=== PATIENT | female | born 1970 ===

== ENCOUNTER 2020-08-12 14:28 | Emergency (ER) | payer OTHER, SELFPAY ==
[2020-08-12 14:54] VITALS: BP 135/72; PULSE 82; RESP 16; TEMP 36.6; O2SAT 99; BMI 38.4
--- NOTE | 2020-08-12 15:12 | ED.SKABFB ---
HPI - Skin/Abscess/Foreign Bdy General Chief complaint: Skin/Abscess/Foreign Body Stated complaint: RASH Time Seen by Provider: 08/12/20 15:12 History of Present Illness HPI narrative: Patient developed an itchy rash in left armpit and right lower leg which she scratched and then it got infected so she went to urgent care and urgent care started Bactrim, Atarax twice a day and mupirocin and the rash is not improved it is still very itchy and the surrounding redness has not improved so she comes here to be recheck she denies any fever or chills no joint pains Related Data Previous Rx's Medication Instructions Recorded sulfamethoxazole 800 1 tab PO BID 7 Days #14 tab 08/08/20 mg-trimethoprim 160 mg tablet cephalexin 500 mg PO QID 7 Days #28 tab 08/12/20 cetirizine 10 mg PO DAILY PRN #14 cap 08/12/20 prednisone 60 mg PO DAILY 3 Days #9 tab 08/12/20 naproxen 500 mg tablet,delayed 500 mg PO BID PRN #60 tab 08/18/20 release hydroxyzine HCl 25 mg tablet 25 mg PO TID PRN 15 Days #45 tab 08/20/20 mupirocin 2 % topical ointment 1 appl TOPICAL TID 10 Days #22 g 08/20/20 Allergies Allergy/AdvReac Type Severity Reaction Status Date / Time nickel [NICKEL] Allergy Severe RASH Verified 08/08/20 14:48 aspirin [ASPIRIN] Allergy Unknown RASH Verified 08/08/20 14:48 nickel Allergy Unknown hives/rash Uncoded 08/08/20 14:48 Seafood Allergy Unknown Unknown Uncoded 08/08/20 14:48 Vicodin Allergy Unknown hives/rash Uncoded 08/08/20 14:48 Review of Systems Review of Systems: Positive for rash on left armpit and right leg negatives are no fever no chills no dizziness no weakness no headache no neck pain no chest pain no shortness of breath no abdominal pain no nausea no vomiting no joint pains PMFSH Past Medical History Source: nursing notes reviewed Medical History (Updated 08/12/20 @ 15:28 by PATY Simental) Cellulitis of skin Pruritic erythematous rash Surgical History H/O tubal ligation Hx of cataract surgery (~2015) S/P lumbar and lumbosacral fusion by anterior technique (~04/2012) Status post ablation of incompetent vein using laser Family History Family History Mother Hx of thyroid cancer Father Dengue Social History Social History Alcohol intake: never Smoking Status: Current some day smoker Cigarettes Per Day: 2 Advance Directives: No Advance Directives Information Provided: Yes Physical Exam Vital Signs: Vital Signs: Last Vital Signs Temp 98 F 08/12/20 14:54 Pulse 82 08/12/20 14:54 Resp 16 08/12/20 14:54 BP 135/72 08/12/20 14:54 Pulse Ox 99 08/12/20 14:54 Body Mass Index 38.4 General appearance is no acute distress, and cooperative Head is normocephalic atraumatic Neck is supple Respiratory no distress Extremities is full range of motion x4 without any joint swelling The skin the left armpit had a red area that is mildly tender with no abscess no fluctuance no discharge, the skin was mildly warm The right lower leg had an area of redness tenderness and warmth again no swelling no discharge no abscess no fluctuance neurovascular distal and gait was normal and joints were normal Neuro no focal deficits Course Course Course Narrative: Keflex was added to antibiotic regimen in well-appearing patient with cellulitis Underlying itchy rash was treated but with addition of prednisone and Zyrtec Discharge Plan Discharge Clinical Impression: Pruritic rash Cellulitis Qualifiers: Site of cellulitis: extremity Patient Disposition: Home, Self-Care Additional Instructions: We are adding a 2nd antibiotic Keflex which covers some common skin infections that are not covered by Bactrim We are changing the rash treatment for the itchy rash Use your hydroxyzine 25 mg at night before bed You could take 2 of them, 50 mg before bed, this may make you sleepy but should help to control the itch We are adding cetirizine which is an all-day antihistamine for itch and prednisone which is a strong anti-inflammatory which may help itch after 24 hours Follow with primary doctor Return in 3 days for recheck if not improved Return to ER any time for spreading redness, worse pain and swelling, any worse condition or any concerns Prescriptions: New cephalexin 500 mg tablet 500 mg PO QID 7 Days Qty: 28 RF: 0 cetirizine 10 mg capsule 10 mg PO DAILY PRN (Reason: allergy symptoms) Qty: 14 RF: 0 prednisone 20 mg tablet 60 mg PO DAILY 3 Days Qty: 9 RF: 0 No Action naproxen 500 mg tablet,delayed release (DR/EC) 500 mg PO BID PRN (Reason: for pain) Qty: 60 RF: 1 mupirocin 2 % ointment 1 appl topical TID 10 Days Qty: 22 RF: 3 hydroxyzine HCl 25 mg tablet 25 mg PO TID PRN (Reason: itching) 15 Days Qty: 45 RF: 2 sulfamethoxazole-trimethoprim [Bactrim DS] 800-160 mg tablet 1 tab PO BID 7 Days Qty: 14 RF: 0 Interventions: ED Discharge Assessment Last Done: 08/12/20 15:42 Discharge Date/Time: 08/12/20 15:44
[2020-08-12] MEDS: cephALEXin 500 MG CAPSULE PO (15:39)
[2020-08-12] MEDS: predniSONE 20 MG TABLET 60 MG PO (15:39)
[2020-08-12] MEDS: Loratadine 10 MG TABLET PO (15:39)
== END 2020-08-12 15:44 | disposition home or self-care (01) ==
PROVIDERS: Emergency Provider Emergency Medicine; PCP Internal Medicine
DX: L29.9 Pruritus, unspecified (principal); L03.112 Cellulitis of left axilla; L03.115 Cellulitis of right lower limb; F17.200 Nicotine dependence, unspecified, uncomplicated
CPT/HCPCS: 99283

== ENCOUNTER 2021-05-30 21:56 | Emergency (ER) | payer OTHER, SELFPAY ==
--- NOTE | ~2021-05-30 | CT_ITS ---
EXAMINATION: CT ABDOMEN AND PELVIS WITHOUT CONTRAST CLINICAL INFORMATION: Left Flank pain COMPARISON: CT abdomen pelvis 06/11/2017. Renal ultrasound 06/30/2017 TECHNIQUE: Multidetector volumetric imaging was performed from the superior aspect of the liver through the pubic symphysis. Sagittal and coronal reformatted images were obtained on the technologist's workstation. This CT examination was performed using dose optimization techniques as appropriate, variously including the following: *Automated exposure control *Adjustment of mA and/or kV according to patient size (this includes techniques or standardized protocols for targeted exams where dose is matched to indication/reason for exam; i.e. extremities or head) *Use of iterative reconstruction technique DLP: 720 mGy-cm FINDINGS: LUNG BASES: The visualized lung bases are unremarkable. LIVER, GALLBLADDER, AND BILIARY TREE: The liver is normal in size, shape, and attenuation. No focal hepatic lesion or biliary ductal dilatation is present. The gallbladder is unremarkable with no evidence of radiopaque gallstones, gallbladder wall thickening, or obvious pericholecystic inflammatory changes. PANCREAS: Unremarkable. SPLEEN: Unremarkable. ADRENAL GLANDS: Unremarkable. KIDNEYS AND URETERS: The kidneys are normal in size, shape, and attenuation. No hydronephrosis, hydroureter, or calculi seen. No perinephric stranding. Exophytic lesion at the lower pole of left kidney measuring 1.4 cm AP, density measurement 26 Hounsfield units. This is stable since 06/11/2017. This was demonstrated to be a complex exophytic cyst at the left kidney on 06/30/2017 renal ultrasound. No further follow-up recommended. BLADDER: Unremarkable. GASTROINTESTINAL TRACT: No acute abnormality. There is no bowel wall thickening /edema. There is no bowel obstruction. There is a moderate volume of stool in the colon. The appendix is normal . The small bowel loops are unremarkable. The stomach is normal. There is no hiatal hernia. MESENTERY/RETROPERITONEUM: No inflammation. No free air or free fluid. No mass or significant lymphadenopathy. ABDOMINAL WALL: No significant hernia is appreciated. LYMPH NODES: Normal. VASCULAR: Unremarkable. PELVIC VISCERA: Unremarkable. OSSEOUS STRUCTURES: Status post fusion L4-S1 with transpedicular screws and vertical stabilization bar bilaterally. Disc spacer at L4-L5 and L5-S1. Surgical clips in the retroperitoneum related to the lumbar spine surgery. CT/CT abdomen pelvis wo con IMPRESSION: No acute abnormality CT scan abdomen pelvis. There is no hydronephrosis. There is no renal or ureteral calculus. Fleischner guidelines were followed.
[2021-05-30 22:20] VITALS: BP 148/68; BP 99/46; PULSE 75; RESP 16; TEMP 36.6; O2SAT 97; O2SAT 99; BMI 39.3
--- NOTE | 2021-05-30 22:32 | ED.ABDPAIN ---
HPI - Abdominal Pain General Chief Complaint: Abdominal Pain Stated Complaint: abd pain Time Seen by Provider: 05/30/21 22:32 Source: patient Mode of arrival: EMS Limitations: no limitations History of Present Illness HPI narrative: Patient history of kidney stone about 1 year ago complaining of left flank pain for last 3 days got worse tonight with some blood in the urine had nausea and vomiting earlier no fever/ chills Related Data Previous Rx's Medication Instructions Recorded sulfamethoxazole 800 1 tab PO BID 7 Days #14 tab 08/08/20 mg-trimethoprim 160 mg tablet (Bactrim DS) cephalexin 500 mg tablet 500 mg PO QID 7 Days #28 tab 08/12/20 cetirizine 10 mg capsule 10 mg PO DAILY PRN #14 cap 08/12/20 prednisone 20 mg tablet 60 mg PO DAILY 3 Days #9 tab 08/12/20 mupirocin 2 % topical ointment 1 appl TOPICAL TID 10 Days #22 g 08/20/20 hydroxyzine HCl 25 mg tablet 25 mg PO TID PRN #45 tab 08/29/20 naproxen 500 mg tablet,delayed 500 mg PO BID PRN #60 tab 10/14/20 release (EC-Naproxen) ciprofloxacin HCl 500 mg tablet 500 mg PO BID #14 tab 05/31/21 (Cipro) tramadol 50 mg tablet 50 mg PO Q6H PRN #20 tab 05/31/21 Allergies Allergy/AdvReac Type Severity Reaction Status Date / Time nickel [NICKEL] Allergy Severe RASH Verified 08/08/20 14:48 aspirin [ASPIRIN] Allergy Unknown RASH Verified 08/08/20 14:48 nickel Allergy Unknown hives/rash Uncoded 08/08/20 14:48 Seafood Allergy Unknown Unknown Uncoded 08/08/20 14:48 Vicodin Allergy Unknown hives/rash Uncoded 08/08/20 14:48 Review of Systems Review of Systems Yes all other systems are reviewed and are negative Physical Exam Vital Signs: Vital Signs: Last Vital Signs Temp 97.6 F 05/31/21 00:00 Pulse 63 05/31/21 00:00 Resp 15 05/31/21 00:34 BP 100/65 05/31/21 00:00 Pulse Ox 99 05/31/21 00:00 BMI result Body Mass Index 39.3 Appearance: Alert. Oriented X3. In moderate distress. Eyes: PERRLA, No Nystagmus ENT: Pharynx normal. Oral Mucosa moist Neck: Normal inspection. Neck supple. CVS: Normal heart rate and rhythm. Pulses normal. Respiratory: No respiratory distress. Equal air entry bilateral, no wheezing/rales/rhonchi Abdomen: Soft and nontender. Bowel sounds are present, no mass palpable, left CVA tenderness++ Skin: Skin warm and dry. Normal skin color. Normal skin turgor. Extremities: No lower extremity edema. No calf tenderness Neuro: Oriented X 3. MDM - Abdominal Pain MDM Narrative Medical decision making narrative: Patient's CT scan negative for any kidney stone has surgery in the back maybe that is causing the pain radiating to the front. Will check the UA 1 am UA positive for UTI will start on Levaquin discharge patient home Lab Data Attestation: I reviewed the patient's lab results. Result diagrams: 05/30/21 23:05 05/30/21 23:05 Labs: Lab Results 05/30/21 05/30/21 05/31/21 Range/Units 23:05 23:05 00:37 WBC 8.7 (4.8-10.8) X10*3/uL RBC 4.79 (4.20-5.50) X10*6/uL Hgb 12.7 (12.0-16.0) g/dl Hct 41.4 (37.0-47.0) % MCV 86.4 (80.0-98.0) fL MCH 26.5 L (27.0-33.0) pg MCHC 30.7 L (31.0-35.0) g/dl RDW 13.6 (11.0-16.0) % Plt Count 201 (160-400) X10*3/uL MPV 12.0 (9.4-12.3) fL Immature Gran % (Auto) 0.1 (0.0-0.4) % Neut % (Auto) 66.3 (45-73) % Lymph % (Auto) 21.8 (20-40) % [place] % (Auto) 7.0 (2-11) % Eos % (Auto) 4.5 H (0-4) % Baso % (Auto) 0.3 (0-2) % Lymph # (Auto) 1.9 (1.2-4.9) X10*3/uL [place] # (Auto) 0.6 (0.1-1.2) X10*3/uL Eos # (Auto) 0.4 (0.0-0.4) X10*3/uL Baso # (Auto) 0.0 (0.0-0.2) X10*3/uL Abs Immat Gran (auto) 0.01 (0.00-0.03) X10*3/uL Absolute Neuts (auto) 5.7 (2.0-8.3) x10*3/uL Absolute Nucleated RBC 0.000 (0.0-0.012) X10*3/uL Nucleated RBC % (auto) 0.0 (0.0-0.2) /100WBC Sodium 145 (135-145) mmol/L Potassium 4.3 (3.3-5.1) mmol/L Chloride 110 H (96-108) mmol/L Carbon Dioxide 28 (22-29) mmol/L Anion Gap 11 L (12-20) BUN 21 H (9-16) mg/dL Creatinine 1.35 (0.5-1.4) mg/dL Estim Creat Clear Calc 51.7 Estimated GFR 41 Random Glucose 105 (60-115) mg/dL Calcium 9.9 (8.4-10.2) mg/dL Urine Color YELLOW Urine Appearance HAZY Urine pH 6.5 (5.0-8.0) Ur Specific [place] 1.025 (1.005-1.025) Urine Protein 1+ H (NEG-TRACE) MG/DL Urine Glucose (UA) NEG (NEG) MG/DL Urine Ketones NEG (NEG) MG/DL Urine Blood 3+ H (NEG) Urine Nitrite NEG (NEG) Ur Leukocyte Esterase 2+ H (NEG) Urine RBC 15-29 H (0) /HPF Urine WBC 30-49 H (0-4) /HPF Ur Squamous Epith Cells 1+ /LPF Urine Bacteria 2+ /LPF Urine Mucus 1+ /LPF Discharge Plan Discharge Clinical Impression: Acute left flank pain Acute cystitis Qualifiers: Hematuria presence: with hematuria Qualified Code(s): N30.01 - Acute cystitis with hematuria Patient Disposition: Home, Self-Care Instructions: Urinary Tract Infection in Women (ED), Flank Pain (ED) Additional Instructions: Drink plenty of fluids Take antibiotic as prescribed Pain medicine as advised Report to PCP/ER if not better Prescriptions: New ciprofloxacin HCl [Cipro] 500 mg tablet 500 mg PO BID Qty: 14 RF: 0 tramadol 50 mg tablet 50 mg PO Q6H PRN (Reason: pain) Qty: 20 RF: 0 No Action mupirocin 2 % ointment 1 appl topical TID 10 Days Qty: 22 RF: 3 hydroxyzine HCl 25 mg tablet 25 mg PO TID PRN (Reason: for itch) Qty: 45 RF: 2 naproxen [EC-Naproxen] 500 mg tablet,delayed release (DR/EC) 500 mg PO BID PRN (Reason: for pain) Qty: 60 RF: 1 cephalexin 500 mg tablet 500 mg PO QID 7 Days Qty: 28 RF: 0 cetirizine 10 mg capsule 10 mg PO DAILY PRN (Reason: allergy symptoms) Qty: 14 RF: 0 prednisone 20 mg tablet 60 mg PO DAILY 3 Days Qty: 9 RF: 0 sulfamethoxazole-trimethoprim [Bactrim DS] 800-160 mg tablet 1 tab PO BID 7 Days Qty: 14 RF: 0 Interventions: ED Discharge Assessment Last Done: 05/31/21 01:06 [facility] Past Medical History Medical History Cellulitis of skin Pruritic erythematous rash Surgical History H/O tubal ligation Hx of cataract surgery (~2015) S/P lumbar and lumbosacral fusion by anterior technique (~04/2012) Status post ablation of incompetent vein using laser Family History Family History Mother Hx of thyroid cancer Father Dengue Social History Social History Alcohol intake: never Cigarettes Per Day: 2 Advance Directives: No Advance Directives Information Provided: No Patient : No
[2021-05-30 23:01] VITALS: BP 105/59; PULSE 78; RESP 18; TEMP 36.6; O2SAT 99
[2021-05-30 23:09] LABS: MANUAL DIFF FLAG NO
[2021-05-30 23:11] VITALS: RESP 15
[2021-05-30 23:11] LABS: Basophils Percent Auto 0.3 % (0-2); Eosinophils Absolute Auto 0.4 X10*3/uL (0.0-0.4); Eosinophils Percent Auto 4.5 % (0-4); Hematocrit 41.4 % (37.0-47.0); Hemoglobin 12.7 g/dl (12.0-16.0); Imm Gran Abs Auto 0.01 X10*3/uL (0.00-0.03); Imm Gran Pct Auto 0.1 % (0.0-0.4); Lymphocytes Absolute Auto 1.9 X10*3/uL (1.2-4.9); Lymphocytes Percent Auto 21.8 % (20-40); Mean Corpuscular HGB Conc 30.7 g/dl (31.0-35.0); Mean Corpuscular Hemoglobin 26.5 pg (27.0-33.0); Mean Corpuscular Volume 86.4 fL (80.0-98.0); Monocytes Absolute Auto 0.6 X10*3/uL (0.1-1.2); Neutrophils Absolute Auto 5.7 x10*3/uL (2.0-8.3); Neutrophils Percent Auto 66.3 % (45-73); Platelet Count 201 X10*3/uL (160-400); Red Blood Count 4.79 X10*6/uL (4.20-5.50); Red Cell Distribution Width 13.6 % (11.0-16.0); White Blood Count 8.7 X10*3/uL (4.8-10.8)
[2021-05-30] MEDS: 0.9 % Sodium Chloride 1,000 ML 999 ML IV (23:11)
[2021-05-30] MEDS: Morphine Sulfate 4 MG/ML CARTRIDGE IVPUSH (23:11)
[2021-05-30] MEDS: ondansetron HCL 4 MG/2 ML VIAL IVPUSH (23:12)
[2021-05-30 23:24] LABS: Anion Gap 11 (12-20); Blood Urea Nitrogen 21 mg/dL (9-16); Calcium 9.9 mg/dL (8.4-10.2); Carbon Dioxide 28 mmol/L (22-29); Chloride 110 mmol/L (96-108); Creatinine Clr Calc Pharmacy 51.7; Estimated Glomerular Filt Rate 41; Glucose Random 105 mg/dL (60-115); Potassium 4.3 mmol/L (3.3-5.1); Sodium 145 mmol/L (135-145)
[2021-05-31] VITALS: BP 100/65; PULSE 63; RESP 16; TEMP 36.4; O2SAT 99
[2021-05-31 00:34] VITALS: RESP 15
[2021-05-31] MEDS: Ketorolac Tromethamine 30 MG/ML VIAL IVPUSH (00:34)
[2021-05-31] MEDS: HYDROmorphone HCl 1 MG/ML SYRINGE IVPUSH (00:34)
[2021-05-31 00:50] LABS: Appearance Urine HAZY; Color Urine YELLOW; Glucose Urine UA NEG (NEG); Leukocyte Esterase Urine 2+ (NEG); Nitrite Urine NEG (NEG); PH 6.5 (5.0-8.0); Specific Gravity - Urine 1.025 (1.005-1.025); UACC Culture Trigger YES; Urine Blood 3+ (NEG); Urine Ketones NEG (NEG); Urine Protein 1+ MG/DL (NEG-TRACE)
[2021-05-31 00:57] LABS: Bacteria Urine 2+ /LPF; Mucus Urine 1+ /LPF; Squamous Epithelial Cell Urine 1+ /LPF; WBC Urine 30-49 /HPF (0-4)
[2021-05-31] MEDS: levoFLOXacin 500 MG TABLET PO (01:11)
== END 2021-05-31 01:27 | disposition home or self-care (01) ==
PROVIDERS: Emergency Provider Internal Medicine; PCP Internal Medicine
DX: N30.01 Acute cystitis with hematuria (principal); R10.9 Unspecified abdominal pain; Z87.442 Personal history of urinary calculi
CPT/HCPCS: 36415; 74176; 80048; 81001; 85025; 87086; 96361; 96374; 96375; 99284; J1170; J1885; J2270; J2405

== ENCOUNTER 2021-07-26 11:23 | Outpatient (REF) | payer OTHER, SELFPAY ==
--- NOTE | ~2021-07-26 | XR_ITS ---
EXAMINATION: XR FINGER, RIGHT CLINICAL INFORMATION: Pain in right fingers. COMPARISON: None. TECHNIQUE: 3 views of the right 3rd digit. FINDINGS: The bones and soft tissues are normal. No fracture. Alignment is anatomic. Joint spaces are maintained. XR/XR finger RT min 2V IMPRESSION: Normal finger radiographs. Especially, there is no abnormality involving the 3rd digit.
== END 2021-07-26 11:24 | disposition home or self-care (01) ==
LOC: HO.XRAY 11:23
PROVIDERS: PCP Nurse Practitioner Acute Care; Visit Provider Nurse Practitioner Acute Care
DX: M79.644 Pain in right finger(s) (principal)
CPT/HCPCS: 73140

== ENCOUNTER → 2021-11-05 10:53 | Outpatient (BNVA) | payer OTHER, SELFPAY | PROVIDERS: PCP Nurse Practitioner Acute Care; Visit Provider Dietitian, Registered | DX: E66.9 Obesity, unspecified (principal); R63.0 Anorexia; Z68.38 Body mass index [BMI] 38.0-38.9, adult; Z71.3 Dietary counseling and surveillance | CPT/HCPCS: 97802 ==

== ENCOUNTER → 2021-11-28 11:20 | Outpatient (BNVA) | payer OTHER, SELFPAY | PROVIDERS: PCP Nurse Practitioner Family; Visit Provider Dietitian, Registered | DX: E66.9 Obesity, unspecified (principal) | CPT/HCPCS: 97803 ==

== ENCOUNTER 2021-12-05 14:15 | Emergency (ER) | payer OTHER, SELFPAY ==
--- NOTE | ~2021-12-05 | XR_ITS ---
EXAMINATION: XR CHEST CLINICAL INFORMATION: Chest pain. COMPARISON: 01/09/2014 chest radiographs. TECHNIQUE: Frontal view of the chest was obtained. FINDINGS: No significant abnormality is noted involving the heart, lungs, mediastinum, bony thorax or soft tissues. XR/XR chest 1V IMPRESSION: No acute cardiopulmonary process.
--- NOTE | 2021-12-05 14:26 | ECG_ITS ---
Test Reason : DIZZINESS Blood Pressure : / mmHG Vent. Rate : 090 BPM Atrial Rate : 090 BPM P-R Int : 140 ms QRS Dur : 076 ms QT Int : 332 ms P-R-T Axes : -05 028 006 degrees QTc Int : 406 ms Normal sinus rhythm Normal ECG When compared with ECG of 06-OCT-2015 22:48, No significant change was found Referred By: Generic ED Physician Electronically Signed By:SILVESTRE MORELOS
[2021-12-05 14:40] VITALS: BP 127/79; PULSE 97; RESP 16; TEMP 37.4; O2SAT 98; BMI 38.4
[2021-12-05 15:16] LABS: MANUAL DIFF FLAG NO
[2021-12-05 15:17] LABS: Basophils Percent Auto 0.4 % (0-2); Eosinophils Absolute Auto 0.1 X10*3/uL (0.0-0.4); Eosinophils Percent Auto 2.7 % (0-4); Hematocrit 37.5 % (37.0-47.0); Hemoglobin 11.6 g/dl (12.0-16.0); Imm Gran Abs Auto 0.01 X10*3/uL (0.00-0.03); Imm Gran Pct Auto 0.2 % (0.0-0.4); Lymphocytes Absolute Auto 0.3 X10*3/uL (1.2-4.9); Mean Corpuscular HGB Conc 30.9 g/dl (31.0-35.0); Mean Corpuscular Hemoglobin 25.6 pg (27.0-33.0); Mean Corpuscular Volume 82.6 fL (80.0-98.0); Monocytes Absolute Auto 0.4 X10*3/uL (0.1-1.2); Monocytes Percent Auto 9.6 % (2-11); Neutrophils Absolute Auto 3.6 x10*3/uL (2.0-8.3); Neutrophils Percent Auto 81.1 % (45-73); Platelet Count 144 X10*3/uL (160-400); Red Blood Count 4.54 X10*6/uL (4.20-5.50); Red Cell Distribution Width 13.2 % (11.0-16.0); White Blood Count 4.5 X10*3/uL (4.8-10.8)
[2021-12-05 15:24] LABS: COVID-19 Test Positive (Negative)
[2021-12-05 15:36] LABS: Anion Gap 10 (12-20); Blood Urea Nitrogen 18 mg/dL (9-16); Calcium 9.2 mg/dL (8.4-10.2); Carbon Dioxide 24 mmol/L (22-29); Chloride 107 mmol/L (96-108); Creatinine Clr Calc Pharmacy 87.4; Estimated Glomerular Filt Rate > 60; Glucose Random 94 mg/dL (60-115); Potassium 4.3 mmol/L (3.3-5.1); Sodium 137 mmol/L (135-145)
[2021-12-05 15:43] LABS: Troponin-I High Sensitivity < 3.5 ng/L (<3.5-17.0)
--- NOTE | 2021-12-05 18:27 | ED_ITS ---
HPI - URI/Sore Throat General Chief Complaint: Upper Respiratory Symptoms Stated Complaint: headache chest pain Time Seen by Provider: 12/05/21 18:01 Source: patient Mode of arrival: ambulatory Limitations: no limitations History of Present Illness HPI Narrative: 51-year-old female presenting to the ER with complaints of subjective fevers, chills, fatigue, malaise, headaches, nasal congestion/rhinorrhea and dry cough with chest wall pain since this morning. Reports that she was around her family yesterday although no sick contacts that she is aware of. She has 1 COVID vaccine. She denies any measured fevers, dizziness, neck pain/stiffness, trouble swallowing or breathing, shortness of breath or dyspnea on exertion, orthopnea, palpitations, chest pain, sputum production, rashes, nausea/vomiting/diarrhea constipation, black or bloody stools, dysuria or or abnormal vaginal discharge or any other symptoms complaints or concerns at this time. MD elicited complaint: fever, cough, rhinorrhea and nasal congestion Onset (ago): day(s) (today) Consistency: constant and progressively worsening Severity: moderate Able to tolerate fluids by mouth: Yes Exacerbating factors: nothing Relieving factors: nothing Related Data Home Medications Medication Instructions Recorded Confirmed fluticasone propionate 50 1 spray intranasal BID 06/14/21 06/27/21 mcg/actuation nasal spray,suspension (Flonase Allergy Relief) Previous Rx's Medication Instructions Recorded cetirizine 10 mg capsule 10 mg PO DAILY PRN allergy 08/12/20 symptoms #14 caps hydroxyzine HCl 25 mg tablet 25 mg PO TID PRN for itch #45 tabs 05/31/21 ibuprofen 800 mg tablet 800 mg PO Q8H PRN pain #30 tabs 05/31/21 tramadol 50 mg tablet 50 mg PO Q6H PRN pain #20 tabs 05/31/21 albuterol sulfate 1.25 mg/3 mL 1.25 mg (3 mL) inhalation QID PRN 06/14/21 solution for nebulization shortness of breath or wheezing #75 mL albuterol sulfate 90 mcg/actuation 2 puff inhalation Q4-6H PRN 06/14/21 aerosol inhaler (ProAir HFA) shortness of breath or wheezing #8.5 grams diclofenac sodium 1 % topical gel 2 g topical QID PRN pain #100 grams 06/27/21 (Arthritis Pain (diclofenac)) mupirocin 2 % topical ointment 1 appl topical TID 10 days #22 06/27/21 grams tizanidine 2 mg tablet 2 mg PO BEDTIME PRN muscle 06/27/21 spasticity #10 tabs triamcinolone acetonide 0.1 % 1 appl topical DAILY 14 days #15 06/27/21 topical cream grams furosemide 20 mg tablet 10 mg PO Q OTHER DAY #7 tabs 07/26/21 incontinence pad, liner, disp #144 ea 11/26/21 ([employer] Large pads) vyftszmmiv-svllclqgoqunu-qflfhwyg 1 tab PO Q6H PRN headaches #14 tabs 12/05/21 50 mg-325 mg-40 mg tablet cefuroxime axetil 250 mg tablet 250 mg PO BID uti 7 days #14 tabs 12/05/21 Allergies Allergy/AdvReac Type Severity Reaction Status Date / Time nickel [NICKEL] Allergy Severe RASH Verified 12/05/21 14:40 aspirin [ASPIRIN] Allergy Unknown RASH Verified 12/05/21 14:40 nickel Allergy Unknown hives/rash Uncoded 07/26/21 10:41 Seafood Allergy Unknown Unknown Uncoded 07/26/21 10:41 Vicodin Allergy Unknown hives/rash Uncoded 07/26/21 10:41 Review of Systems Review of Systems: Constitutional : + subjective fevers /chills/fatigue/malaise, No Weight loss, No Night Sweats ENT/Mouth : Nasal congestion/rhinorrhea, +No Hearing loss, No Ear Pain, No Sinus Pain, No Hoarseness, No sore throat, No Swallowing Difficulty Eyes: No Eye Pain, No Swelling, No Redness, No Foreign Body, No Discharge, No Vision Changes Cardiovascular : No Chest Pain, No SOB, No Dyspnea on Exertion, No Orthopnea, No Edema, No Palpitations Respiratory : +Cough, No Sputum, No Wheezing, No Smoke Exposure, No Dyspnea Gastrointestinal : No Nausea, No Vomiting, No Diarrhea, No Constipation, No abdominal Pain, No Hematochezia, No Melena Genitourinary : no irregular bleeding, No Dysuria, No Urinary Frequency, No Hematuria, No Urinary Incontinence, No Urgency, No Flank Pain, No Urinary Flow Changes, No Hesitancy Musculoskeletal : No joint pain, + Myalgias, No Joint Swelling Skin : No Skin Lesions, No rash Neuro : No Weakness, No Numbness, No Paresthesias, No Loss of Consciousness, No Dizziness, + Headache Psych : No Anxiety/Panic, No Depression, No SI/HI/AH/VH, No Social Issues, Heme/Lymph: No Bruising, No Bleeding,No Lymphadenopathy Endocrine : No Polyuria, No Polydipsia, No Temperature Intolerance Yes all other systems are reviewed and are negative [facility] Past Medical History Attestation statement: The following information was validated with the patient. Source: old records reviewed and nursing notes reviewed Medical History Cellulitis of skin Pruritic erythematous rash Surgical History H/O tubal ligation Hx of cataract surgery (~2015) S/P lumbar and lumbosacral fusion by anterior technique (~04/2012) Status post ablation of incompetent vein using laser Family History Family History Mother Hx of thyroid cancer Father Dengue Social History Social History Housing: Apartment Alcohol intake: never Patient Tobacco Use Status: Current everyday Tobacco user Cigarettes Per Day: 2 e-Cigarette/Vaping Use: Never Used Second Hand Smoke Exposure: Yes Advance Directives: No Advance Directives Information Provided: No service: No Current occupational status: disabled Physical Exam Vital Signs: Vital Signs: Last Vital Signs Temp 99.4 F 12/05/21 14:40 Pulse 97 12/05/21 14:40 Resp 16 12/05/21 14:40 BP 127/79 12/05/21 14:40 Pulse Ox 98 12/05/21 14:40 O2 Del Method 12/05/21 14:40 BMI result Body Mass Index 38.4 vital signs have been reviewed as normal and appeared to be correct. Blood pressure normal. Heart rate normal. Respiration rate normal. Temperature normal. Oxygen saturation normal. Appearance: Alert. Oriented X3. No acute distress. Head: Normal external exam. Normocephalic. Atraumatic. Eyes: PERRLA. EOMI. Conjunctiva and sclera normal. Eyelids normal. ENT: EAC normal. TM's Normal. Pharynx normal. Uvula midline. Moist mucous membranes. No lesions/ulcerations or masses noted on the tongue. Normal voice. No trismus noted. No drooling noted. No muffled voice noted. Neck: Normal inspection. Neck supple. FROM. No adenopathy. Thyroid Normal. No meningeal signs. No neck mass noted. No signs of trauma noted. CVS: Normal heart rate and rhythm. Heart sound normal. Pulses normal throughout. No murmurs/rales/gallops. Respiratory: No respiratory distress. Painless inspiration. Breath sounds normal. No wheezes/rales/rhonchi noted. No crepitus is noted. No signs of trauma noted. No accessory muscle usage noted or decreased air movement noted. Abdomen: Soft and nontender. Bowel sounds normal in all 4 quadrants. No distention noted. No organomegaly noted. No visible injury noted. Back: No CVA tenderness. Full range of motion noted. Nontender. No signs of trauma. Patient neuro intact bilaterally and distally on all 4 extremities. Patient's reflexes intact bilaterally and distally on all 4 extremities. No rashes/lesion/induration/fluctuance or signs of infection noted. Skin: Skin warm and dry. Normal skin color. Normal skin turgor. No rashes/lesions/lacerations noted. Extremities: No lower extremity edema. No calf tenderness is noted. Extremities exhibit normal range of motion and nontender. Neuro: Oriented X 3. No motor deficit. No sensory deficit. Reflexes normal. Normal steady gait. No focal neuro deficits noted. CN's II-XII intact bilaterally? Vascular: + radial pulses/+ 2 distal pedal pulses/+2 dorsalis pedis b/l. Normal cap refill. No cyanosis noted to upper extremity nails and lower extremity toes nails. Course Course Course Narrative: 51-year-old female presenting to the ER with complaints of subjective fevers, chills, fatigue, malaise, headaches, nasal congestion/rhinorrhea and dry cough with chest wall pain since this morning. Reports that she was around her family yesterday although no sick contacts that she is aware of. She has 1 COVID vaccine. Patient had labs drawn in waiting room and patient's white blood cell count is 4000. Hemoglobin is 11. Platelet count 144. Anion gap 10. BUN 18. Otherwise all other labs are within normal limits. UA positive for UTI. Patient positiv e for COVID. Chest x-ray is negative. Therefore at this time will DC home with instructions to self isolate per CDC guidelines for COVID. Antibiotics for her UTI and instructions return if any new or worsening symptoms. Patient understands agrees with this plan. MDM - URI/Sore Throat Medical Records Attestation: I reviewed the patient's medical records. Lab Data Attestation: I reviewed the patient's lab results. Result diagrams: 12/05/21 15:10 12/05/21 15:10 Labs: Lab Results 12/05/21 12/05/21 12/05/21 Range/Units 15:10 15:10 15:10 WBC 4.5 L (4.8-10.8) X10*3/uL RBC 4.54 (4.20-5.50) X10*6/uL Hgb 11.6 L (12.0-16.0) g/dl Hct 37.5 (37.0-47.0) % MCV 82.6 (80.0-98.0) fL MCH 25.6 L (27.0-33.0) pg MCHC 30.9 L (31.0-35.0) g/dl RDW 13.2 (11.0-16.0) % Plt Count 144 L D (160-400) X10*3/uL MPV 12.0 (9.4-12.3) fL Immature Gran % (Auto) 0.2 (0.0-0.4) % Neut % (Auto) 81.1 H (45-73) % Lymph % (Auto) 6.0 L (20-40) % Mcminn % (Auto) 9.6 (2-11) % Eos % (Auto) 2.7 (0-4) % Baso % (Auto) 0.4 (0-2) % Lymph # (Auto) 0.3 L (1.2-4.9) X10*3/uL Mcminn # (Auto) 0.4 (0.1-1.2) X10*3/uL Eos # (Auto) 0.1 (0.0-0.4) X10*3/uL Baso # (Auto) 0.0 (0.0-0.2) X10*3/uL Abs Immat Gran (auto) 0.01 (0.00-0.03) X10*3/uL Absolute Neuts (auto) 3.6 (2.0-8.3) x10*3/uL Absolute Nucleated RBC 0.000 (0.0-0.012) X10*3/uL Nucleated RBC % (auto) 0.0 (0.0-0.2) /100WBC Sodium 137 (135-145) mmol/L Potassium 4.3 (3.3-5.1) mmol/L Chloride 107 (96-108) mmol/L Carbon Dioxide 24 (22-29) mmol/L Anion Gap 10 L (12-20) BUN 18 H (9-16) mg/dL Creatinine 0.81 (0.5-1.4) mg/dL Estim Creat Clear Calc 87.4 Estimated GFR > 60 Random Glucose 94 (60-115) mg/dL Calcium 9.2 D (8.4-10.2) mg/dL Troponin I High Sens < 3.5 (<3.5-17.0) ng/L COVID-19 ([facility]) (Negative) COVID-19 Clin Com 12/05/21 Range/Units 15:10 WBC (4.8-10.8) X10*3/uL RBC (4.20-5.50) X10*6/uL Hgb (12.0-16.0) g/dl Hct (37.0-47.0) % MCV (80.0-98.0) fL MCH (27.0-33.0) pg MCHC (31.0-35.0) g/dl RDW (11.0-16.0) % Plt Count (160-400) X10*3/uL MPV (9.4-12.3) fL Immature Gran % (Auto) (0.0-0.4) % Neut % (Auto) (45-73) % Lymph % (Auto) (20-40) % Mcminn % (Auto) (2-11) % Eos % (Auto) (0-4) % Baso % (Auto) (0-2) % Lymph # (Auto) (1.2-4.9) X10*3/uL Mcminn # (Auto) (0.1-1.2) X10*3/uL Eos # (Auto) (0.0-0.4) X10*3/uL Baso # (Auto) (0.0-0.2) X10*3/uL Abs Immat Gran (auto) (0.00-0.03) X10*3/uL Absolute Neuts (auto) (2.0-8.3) x10*3/uL Absolute Nucleated RBC (0.0-0.012) X10*3/uL Nucleated RBC % (auto) (0.0-0.2) /100WBC Sodium (135-145) mmol/L Potassium (3.3-5.1) mmol/L Chloride (96-108) mmol/L Carbon Dioxide (22-29) mmol/L Anion Gap (12-20) BUN (9-16) mg/dL Creatinine (0.5-1.4) mg/dL Estim Creat Clear Calc Estimated GFR Random Glucose (60-115) mg/dL Calcium (8.4-10.2) mg/dL Troponin I High Sens (<3.5-17.0) ng/L COVID-19 ([facility]) Positive A (Negative) COVID-19 Clin Com See Note Imaging Data Chest x-ray: Attestation: I personally reviewed and interpreted this imaging study as follows: Radiologist's impression: FINDINGS: No significant abnormality is noted involving the heart, lungs, mediastinum, bony thorax or soft tissues. XR/XR chest 1V IMPRESSION: No acute cardiopulmonary process. Discharge Plan Discharge Clinical Impression: COVID-19, UTI (urinary tract infection) Patient Disposition: Home, Self-Care Instructions: Urinary Tract Infection in Women (ED), COVID-19 (Coronavirus Disease 2019) (ED) Prescriptions: New estbaxuyaw-mioihgerdhqkk-ycpa 50-325-40 mg tablet 1 tab PO Q6H PRN (Reason: headaches) Qty: 14 0RF cefuroxime axetil 250 mg tablet 250 mg PO BID 7 Days Qty: 14 0RF No Action (DME) [employer] Large Pad See Rx Instructions .Route Qty: 144 1RF Rx Instructions: As directed, change pad tid prn cetirizine 10 mg capsule 10 mg PO DAILY PRN (Reason: allergy symptoms) Qty: 14 0RF tramadol 50 mg tablet 50 mg PO Q6H PRN (Reason: pain) Qty: 20 0RF ibuprofen 800 mg tablet 800 mg PO Q8H PRN (Reason: pain) Qty: 30 0RF hydroxyzine HCl 25 mg tablet 25 mg PO TID PRN (Reason: for itch) Qty: 45 2RF mupirocin 2 % ointment 1 appl topical TID 10 Days Qty: 22 3RF triamcinolone acetonide 0.1 % cream 1 appl topical DAILY 14 Days Qty: 15 0RF tizanidine 2 mg tablet 2 mg PO BEDTIME PRN (Reason: muscle spasticity) Qty: 10 0RF diclofenac sodium [Arthritis Pain (diclofenac)] 1 % gel 2 g topical QID PRN (Reason: pain) Qty: 100 0RF Rx Instructions: apply to single elbow, wrist or hand; for hand includes palm/fingers/back of hand fluticasone propionate [Flonase Allergy Relief] 50 mcg/actuation spray,suspension 1 spray intranasal BID Rx Instructions: administer into each nostril albuterol sulfate [ProAir HFA] 90 mcg/actuation HFA aerosol inhaler 2 puff inhalation Q4-6H PRN (Reason: shortness of breath or wheezing) Qty: 8.5 0RF albuterol sulfate 1.25 mg/3 mL solution for nebulization 1.25 mg inhalation QID PRN (Reason: shortness of breath or wheezing) Qty: 75 0RF furosemide 20 mg tablet 10 mg PO Q OTHER DAY Qty: 7 0RF Referrals: Shyla Cifuentes FNP [Primary Care Provider] - 1 week Stand Alone Forms: Work/School Release
[2021-12-05] MEDS: Butalb/Acetamin/Caff 50/325/40 TABLET 2 TAB PO (18:53)
== END 2021-12-05 19:08 | disposition home or self-care (01) ==
PROVIDERS: Emergency Provider Internal Medicine; PCP Nurse Practitioner Family
DX: U07.1 COVID-19 (principal); N39.0 Urinary tract infection, site not specified; R50.9 Fever, unspecified; M79.10 Myalgia, unspecified site; R51.9 Headache, unspecified; R05.9 Cough, unspecified; F17.210 Nicotine dependence, cigarettes, uncomplicated; Z71.6 Tobacco abuse counseling; Z79.899 Other long term (current) drug therapy
CPT/HCPCS: 36415; 71045; 80048; 84484; 85025; 87635; 93005; 99283

== ENCOUNTER 2023-07-03 08:31 | Outpatient (REF) | payer OTHER, SELFPAY | END 2023-07-03 08:32 | disposition home or self-care (01) | LOC: HO.MAMMO 08:31 | PROVIDERS: PCP Physician Assistant; Visit Provider Physician Assistant | DX: Z12.31 Encounter for screening mammogram for malignant neoplasm of breast (principal) | CPT/HCPCS: 77063; 77067 ==

== ENCOUNTER → 2023-07-03 08:45 | Outpatient (BNV) | payer OTHER, SELFPAY | PROVIDERS: PCP Physician Assistant; Visit Provider Radiology Diagnostic Radiology | DX: Z12.31 Encounter for screening mammogram for malignant neoplasm of breast (principal) | CPT/HCPCS: 77063; 77067 ==

== ENCOUNTER 2023-07-20 11:06 | Outpatient (AMB) | payer OTHER, SELFPAY ==
--- NOTE | 2023-07-20 11:09 | MHC.PC.OV ---
Vital Signs 07/20/23 11:11 Height 5 ft 2 in Weight 212 lb 1.355 oz BMI 38.8 BP 124/64 Blood Pressure Location Lt brachial Position Sitting Pulse 70 Pulse Source Pulse Oximeter Pulse Oximetry (%) 97 Oxygen Delivery Method Room Air Intake Visit Reasons: f/u asthma, lumbar spine Intake Note: Patient is here to follow up on Asthma, Lumbar spine pain. 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 Required: No Sign Language Instructor: Not Required per policy Accompanied by: Self / Same As Patient Allergies nickel [NICKEL] Allergy (Severe, Verified 07/20/23 11:19) RASH aspirin [ASPIRIN] Allergy (Unknown, Verified 07/20/23 11:19) RASH niacin [From Nicotinex] Adverse Reaction (Intermediate, Verified 07/20/23 11:19) Rash nicotine [From Nicoderm CQ] Adverse Reaction (Intermediate, Verified 07/20/23 11:19) Dizziness nickel Allergy (Unknown, Uncoded 07/20/23 11:11) hives/rash Seafood Allergy (Unknown, Uncoded 07/20/23 11:11) Unknown Vicodin Allergy (Unknown, Uncoded 07/20/23 11:11) hives/rash Medication List - Last Reconciled 07/20/23 by Flaco Rosales PA-C albuterol sulfate 1.25 mg (3 mL) inhalation QID 30 days albuterol sulfate 90 mcg/actuation 2 puffs inhalation Q4-6H PRN 30 days cetirizine 10 mg PO DAILY PRN 90 days diclofenac sodium 1% (Arthritis Pain (diclofenac)) 2 grams topical QID PRN fluticasone propionate 50 mcg/actuation (Flonase Allergy Relief) 1 spray intranasal BID 30 days ibuprofen 800 mg PO Q8H PRN 30 days lidocaine 5% 1 patch topical DAILY 30 days mupirocin 2% 1 appl topical TID 10 days tramadol 50 mg PO Q6H PRN 7 days triamcinolone acetonide 0.1% 1 appl topical DAILY 30 days Tobacco use date assessed: 07/20/23 Dental Screening Dental Screen Date: 07/20/23 Did you have a dental visit in the last 12 months?: No Did you have a dental problem in the last 6 months where you did not have access to dental care?: No Was dental information given to patient?: Patient has dentist HPI f/u asthma, lumbar spine HPI Details Patient is a 53-year-old female here today for a routine annual physical.? Patient has a past medical history significant for chronic lumbar spine pain, obesity, asthma, allergic rhinitis. .. Failed back syndrome:? Patient did lumbar spine surgery with Dr. Robbins years ago.? Continues to have lumbar spine pain with radicular symptoms down left lower extremity.? She continues with the need of NSAIDs and p.r.n. tramadol for her pain.? She has not interested in any further pain reduction modalities at this time. . Asthma: She reports asthma has been fairly well controlled.? Does use her albuterol inhaler on a p.r.n. basis due to having episodes of wheezing.? Unfortunately continues to smoke and does not understand she does need to quit smoking.? She is tried nicotine replacement though had palpitations and dizziness. . Obese: She does understand her BMI is over 30 will work on being more physically active and adapting to better eating habits to reduce her weight/ PFSH Medical History (Updated 07/20/23 @ 12:58 by Flaco Rosales PA-C) COVID-19 Cellulitis of skin Pruritic erythematous rash Surgical History Hx of cataract surgery (~2015) Status post ablation of incompetent vein using laser H/O tubal ligation S/P lumbar and lumbosacral fusion by anterior technique (~04/2012) Family History Mother Hx of thyroid cancer Father Dengue Social History Housing: Apartment Alcohol intake: never Patient Tobacco Use Status: Current everyday Tobacco user Tobacco use type: Cigarette Cigarettes Per Day: 2 e-Cigarette/Vaping Use: Never Used Second Hand Smoke Exposure: Yes service: No Current occupational status: disabled Cognitive needs: No Hearing needs: No Vision needs: No Questionnaire PHQ-9 Over the last 2 weeks, how often have you been bothered by any of the following problems? 1. Little interest or pleasure in doing things: not at all 2. Feeling down, depressed, or hopeless: not at all 3. Trouble falling or staying asleep, or sleeping too much: not at all 4. Feeling tired or having little energy: not at all 5. Poor appetite or overeating: not at all 6. Feeling bad about yourself - or that you are a failure or have let yourself or your family down: not at all 7. Trouble concentrating on things, such as reading the newspaper or watching television: not at all 8. Moving or speaking so slowly that other people could have noticed. Or the opposite - being so fidgety or restless that you have been moving around a lot more than usual: not at all 9. Thoughts that you would be better off or of hurting yourself in some way: not at all Total score: 0 Depression Screening Interpretation: Negative Depression Screening Done: Yes 10487 - PHQ-9 Billing: Yes Source: Developed by Drs. Parish Paz, Deborah Friend, Zia Sharp and colleagues, with an educational sharon from [employer]. Thrive Questionnaire Date Thrive assessed: 07/20/23 I am a: Patient What is your living situation today?: I have a steady place to live Within the past 12 months, did the food you bought not last and you didn't have the money to get more?: Never true Within the past 12 months, did you worry whether your food would run out before you got money to buy more?: Never true Do you have trouble paying for medicines?: No Do you have trouble getting transportation to medical appointments?: No Do you have trouble paying your heating and electricity bill?: No Do you have trouble taking care of your child, family member or friend?: No Do you have trouble with day-to-day activities such as bathing, preparing meals, shopping, managing finances, etc.?: No Are you currently unemployed and looking for a job?: No Are you interested in more education?: No Currently or been in a relationship where the following occur: no concerns reported THRIVE Score: 0 AUDIT C Alcohol Use Questionnaire (AUDIT-C) 1. How often do you have a drink containing alcohol?: Never Total Score: 0 CAROLINE-7 AMB Questionnaire CAROLINE-7 Date CAROLINE - 7 assessed: 07/20/23 Feeling nervous, anxious, or on edge: 0 = Not at all Not being able to stop or control worryin = Not at all Worrying too much about different things: 0 = Not at all Trouble relaxin = Not at all Being so restless that it is hard to sit still: 0 = Not at all Becoming easily annoyed or irritable: 0 = Not at all Feeling afraid as if something awful might happen: 0 = Not at all Total CAROLINE-7 score (0-4 normal; 5-9 mild; 10-14 moderate; 15-21 severe): 0 Source: Developed by Drs. Parish Paz, Deborah Friend, Zia Sharp and colleagues, with an educational sharon from [employer]. CAROLINE-7 Assessment Billing CAROLINE-7 Assessment Tool: CAROLINE-7 Assessment 47493 ACT Questionnaire In the past 4 weeks, how much of the time did your asthma keep you from getting as much done at work, school or at home?: None of the time During the past 4 weeks, how often have you had shortness of breath?: Not at all During the past 4 weeks, how often did your asthma symptoms wake you up at night or earlier than usual in the morning?: Not at all During the past 4 weeks, how often have you had to use your rescue inhaler or nebulizer medication?: Not at all How would you rate your asthma control during the past 4 weeks?: Completely controlled ACT Interpretation: Negative Score: 25 Review of Systems Const Denies headache(s) Eyes Denies loss of vision ENT Denies vertigo, Denies dizziness, Denies headache(s) and Denies sore throat Card Denies chest pain, Denies leg edema and Denies lightheadedness Resp Denies cough, Denies hemoptysis and Denies wheezing GI Denies abdominal pain, Denies melena, Denies constipation, Denies diarrhea and Denies vomiting Denies urinary frequency, Denies dysuria and Denies urinary urgency Musc Denies arthralgias, Denies joint swelling, Denies numbness and Denies tingling Neuro Denies Abnormal speech present, Denies behavioral changes, Denies vertigo, Denies dizziness, Denies headache(s), Denies loss of vision, Denies memory loss, Denies numbness and Denies tingling Psych Denies anxiety, Denies behavioral changes, Denies depression, Denies memory loss and Denies panic attacks Sam/Lymph Denies easy bleeding and Denies easy bruising Aller/Immun Denies wheezing Physical exam (Primary Care) Vital Signs: Last Vital Signs Pulse 70 07/20/23 11:11 BP 124/64 07/20/23 11:11 Pulse Ox 97 07/20/23 11:11 Oxygen Delivery Method Room Air 07/20/23 11:11 BMI result Body Mass Index 38.8 Tobacco/Smoking Status: Tobacco use Status Tobacco use date assessed 07/20/23 07/20/23 11:18 Patient Tobacco Use Status Current everyday Tobacco 07/20/23 11:18 Tobacco use type Cigarette 07/20/23 11:18 e-Cigarette/Vaping Use Never Used 07/20/23 11:18 PHQ-9: PHQ-9 Score PHQ-9: Total score 0 07/20/23 12:57 Depression Screening Interpretation: Negative Thrive Assessment: Date of Thrive Assessment Date Thrive assessed 07/20/23 07/20/23 11:18 Currently or been in a relationship where the following occur: no concerns reported Const General: healthy appearing, no acute distress, alert and awake Nutritional Appearance: well nourished Orientation/consciousness: oriented to person, oriented to place and oriented to time HENMT Ears: TM's normal bilaterally General nose exam: Normal nasal mucous membranes and turbinates present Eyes Conjunctivae: conjunctivae normal Sclerae: sclerae normal Pupils: Equal, round and reactive pupils present Neck Neck: Yes no lymphadenopathy and Yes no JVD Thyroid: Thyroid normal Carotids: no bruits Resp Effort & Inspection: normal respiratory effort and not tachypneic Auscultation: no crackles, no rales, no rhonchi and no wheezes Cardio Rate: regular rate Rhythm: regular rhythm Heart sounds: no murmurs and normal S1 and S2 GI Palpation (GI): Soft to palpation, nontender, no hepatomegaly and no splenomegaly Auscultation: normal bowel sounds Skin General skin exam: no rashes or lesions noted and dry skin Neuro General: oriented to person, oriented to place and oriented to time Cranial nerves: Yes Equal, round and reactive pupils present Speech: No Abnormal speech present Gait exam (Neuro): Normal gait present Motor exam (neuro): no tremor noted Extrem Right upper extremity: full ROM Left upper extremity: full ROM Right lower extremity: full ROM; no edema Left lower extremity: full ROM; no edema Psych Mental Status: mental status grossly normal Speech and movement: Normal speech and movement present Affect: normal affect Attitude: cooperative Thought process: Normal thought process present Assessment and Plan Assessment & Plan (1) Asthma: Code(s): J45.909 - Unspecified asthma, uncomplicated Qualifiers: Asthma complication type: uncomplicated Asthma persistence: persistent Asthma severity: mild Qualified Code(s): J45.30 - Mild persistent asthma, uncomplicated Plan: Patient reports her asthma has been fairly well controlled. Does have some exacerbations during spring and fall. Otherwise denies any nighttime awakenings with asthma symptoms or recent exacerbations. (2) Tobacco dependence: Code(s): F17.200 - Nicotine dependence, unspecified, uncomplicated Plan: She does report smoking on occasion. He does not want any nicotine patches or gum. (3) Failed back syndrome: Code(s): M96.1 - Postlaminectomy syndrome, not elsewhere classified Plan: Has history of lumbar spine fusion surgery. Has had chronic pain in her lower lumbar spine. Does use NSAID and tramadol on a p.r.n. basis for her pain. (4) Obese: Code(s): E66.9 - Obesity, unspecified Qualifiers: Body mass index: BMI 38.0-38.9 Obesity classification: adult class 2 (BMI 35 - 39.9) Obesity type: due to excess calories Serious obesity comorbidity presence: without serious comorbidity Qualified Code(s): E66.09 - Other obesity due to excess calories; Z68.38 - Body mass index [BMI] 38.0-38.9, adult Plan: Patient does understand her BMI is over 30 will try to work on being more physically active and adapt to better eating habits to reduce her weight. (5) Borderline high cholesterol: Code(s): E78.9 - Disorder of lipoprotein metabolism, unspecified Plan: Patient has a history of borderline high cholesterol. Will recheck fasting lipids. Orders: Orders Complete Blood Count no Diff Today J45.30 - Mild persistent asthma, uncomplicated Comprehensive [place]. Panel Fast Today Z13.1 - Encounter for screening for diabetes mellitus Lipid Panel Today E78.9 - Disorder of lipoprotein metabolism, unspecified Medications: Refilled albuterol sulfate 90 mcg/actuation 2 puffs inhalation Q4-6H PRN 8.5 grams 3RF shortness of breath or wheezing 30 days J45.909 - Unspecified asthma, uncomplicated albuterol sulfate 1.25 mg (3 mL) inhalation QID 90 mL 3RF shortness of breath or wheezing 30 days J45.909 - Unspecified asthma, uncomplicated fluticasone propionate 50 mcg/actuation (Flonase Allergy Relief) administer into each nostril 1 spray intranasal BID 16 grams 6RF 30 days J45.30 - Mild persistent asthma, uncomplicated triamcinolone acetonide 0.1% 1 appl topical DAILY 30 grams 3RF 30 days L28.2 - Other prurigo mupirocin 2% 1 appl topical TID 22 grams 3RF 10 days L03.90 - Cellulitis, unspecified Coding Level of Care Code Est Pt Level 4 (80101) Diagnoses Mild persistent asthma without complication J45.30 Asthma complication type: uncomplicated Asthma persistence: persistent Asthma severity: mild Tobacco dependence F17.200 Failed back syndrome M96.1 Class 2 obesity due to excess calories without serious comorbidity with body mass index (BMI) of 38.0 to 38.9 in adult E66.09; Z68.38 Body mass index: BMI 38.0-38.9 Obesity classification: adult class 2 (BMI 35 - 39.9) Obesity type: due to excess calories Serious obesity comorbidity presence: without serious comorbidity Borderline high cholesterol E78.9 Additional Codes CAROLINE-7 Assessment Billing - CAROLINE-7 Assessment Tool: CAROLINE-7 Assessment [id number] ([id number])
[2023-07-20 11:11] VITALS: BP 124/64; PULSE 70; O2SAT 97; BMI 38.8
== END 2023-07-20 11:32 | disposition home or self-care (01) ==
PROVIDERS: PCP Physician Assistant; Visit Provider Physician Assistant
DX: J45.30 Mild persistent asthma, uncomplicated (principal); E66.09 Other obesity due to excess calories; Z68.38 Body mass index [BMI] 38.0-38.9, adult; F17.200 Nicotine dependence, unspecified, uncomplicated; M96.1 Postlaminectomy syndrome, not elsewhere classified; E78.9 Disorder of lipoprotein metabolism, unspecified
CPT/HCPCS: 99214

== ENCOUNTER 2023-09-04 07:26 | Outpatient (REF) | payer OTHER, SELFPAY ==
[2023-09-04 07:43] LABS: Hematocrit 41.4 % (37.0-47.0); Mean Corpuscular HGB Conc 31.4 g/dl (31.0-35.0); Mean Corpuscular Hemoglobin 26.4 pg (27.0-33.0); Mean Platelet Volume 11.7 fL (9.4-12.3); Platelet Count 219 X10*3/uL (160-400); Red Blood Count 4.93 X10*6/uL (4.20-5.50); Red Cell Distribution Width 12.9 % (11.0-16.0); White Blood Count 6.3 X10*3/uL (4.8-10.8)
[2023-09-04 08:21] LABS: Alanine Aminotransferase 15 U/L (0-31); Albumin Level 4.4 g/dL (3.5-5.0); Alkaline Phosphatase 95 U/L (39-117); Anion Gap 12 (12-20); Aspartate Amino Transferase 18 U/L (5-31); Bilirubin Total 0.4 mg/dL (0.0-1.0); Blood Urea Nitrogen 24 mg/dL (9-16); Calcium 9.4 mg/dL (8.4-10.2); Carbon Dioxide 24 mmol/L (22-29); Chloride 109 mmol/L (96-108); Cholesterol 189 mg/dL (<200); Estimated Glomerular Filt Rate > 60; Glucose Fasting 105 mg/dL (60-99); HDL Cholesterol 51 mg/dL (>40); LDL Cholesterol Calculated 116 mg/dL (<100); Potassium 4.2 mmol/L (3.3-5.1); Sodium 141 mmol/L (135-145); Total Protein 7.7 g/dL (6.5-8.0); Triglycerides 110 mg/dL (<150)
== END 2023-09-04 07:27 | disposition home or self-care (01) ==
LOC: HO.LAB 07:26
PROVIDERS: PCP Physician Assistant; Visit Provider Physician Assistant
DX: Z13.1 Encounter for screening for diabetes mellitus (principal); E78.9 Disorder of lipoprotein metabolism, unspecified; J45.30 Mild persistent asthma, uncomplicated
CPT/HCPCS: 36415; 80053; 80061; 85027

== ENCOUNTER 2023-11-30 10:01 | Outpatient (AMB) | payer OTHER, SELFPAY ==
--- NOTE | 2023-11-30 10:06 | A.OFFPC_ITS ---
Vital Signs 11/30/23 10:26 Height 5 ft 2 in Weight 206 lb BMI 37.7 BP 112/70 Blood Pressure Location Rt brachial Position Sitting Pulse 68 Pulse Source Pulse Oximeter Pulse Oximetry (%) 96 Oxygen Delivery Method Room Air Intake Visit Reasons: Annual exam Intake Note: Patient is here today for a physical. 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 Accompanied by: Self / Same As Patient Allergies nickel [NICKEL] Allergy (Severe, Verified 11/30/23 10:33) RASH aspirin [ASPIRIN] Allergy (Unknown, Verified 11/30/23 10:33) RASH niacin [From Nicotinex] Adverse Reaction (Intermediate, Verified 11/30/23 10:33) Rash nicotine [From Nicoderm CQ] Adverse Reaction (Intermediate, Verified 11/30/23 10:33) Dizziness nickel Allergy (Unknown, Uncoded 11/30/23 10:33) hives/rash Seafood Allergy (Unknown, Uncoded 11/30/23 10:33) Unknown Vicodin Allergy (Unknown, Uncoded 11/30/23 10:33) hives/rash Medication List - Last Reconciled 11/30/23 by Flaco Rosales PA-C albuterol sulfate 90 mcg/actuation 2 puffs inhalation Q4-6H PRN 30 days albuterol sulfate 1.25 mg (3 mL) inhalation QID 30 days cetirizine 10 mg PO DAILY PRN 90 days diclofenac sodium 1% (Arthritis Pain (diclofenac)) 2 grams topical QID PRN fluticasone propionate 50 mcg/actuation (Flonase Allergy Relief) 1 spray intranasal BID 30 days ibuprofen 800 mg PO Q8H PRN 30 days lidocaine 5% 1 patch topical DAILY 30 days mupirocin 2% 1 appl topical TID 10 days tramadol 50 mg PO Q6H PRN 7 days triamcinolone acetonide 0.1% 1 appl topical DAILY 30 days Tobacco use date assessed: 07/20/23 Dental Screening Dental Screen Date: 07/20/23 HPI Annual exam HPI Details Patient is a 53-year-old female here today for a routine annual physical.? Patient has a past medical history significant for chronic lumbar spine pain, obesity, asthma, allergic rhinitis. .. Failed back syndrome:? Reports over the last 3 days having lower lumbar spine pain with radiculopathy down left lower extremity. She denies any acute trauma to her lower back. Has been using her tramadol and [id number] NSAIDs without any significant relief. Patient did lumbar spine surgery with Dr. Robbins years ago.? Continues to have lumbar spine pain with radicular symptoms down left lower extremity.? She continues with the need of NSAIDs and p.r.n. tramadol for her pain.? She has not interested in any further pain reduction modalities at this time. . Asthma: She reports asthma has been fairly well controlled.? Does use her albuterol inhaler on a p.r.n. basis due to having episodes of wheezing.? Unfortunately continues to smoke and does not understand she does need to quit smoking.? She is tried nicotine replacement though had palpitations and dizziness. .. Mammogram: Mammogram in spring, BI-RADS 1 Colorectal cancer screening: FIT testing in July of 2023 was negative. Vaccines: Up-to-date with COVID vaccine, UTD pneumonia vaccine, up-to-date with flu vaccine, UTD tetanus vaccines, considering shingles vaccine PFSH Medical History COVID-19 Cellulitis of skin Pruritic erythematous rash Surgical History Hx of cataract surgery (~2015) Status post ablation of incompetent vein using laser H/O tubal ligation S/P lumbar and lumbosacral fusion by anterior technique (~04/2012) Family History Mother Hx of thyroid cancer Father Dengue Social History Housing: Apartment Alcohol intake: never Patient Tobacco Use Status: Current everyday Tobacco user Tobacco use type: Cigarette Cigarettes Per Day: 2 e-Cigarette/Vaping Use: Never Used Second Hand Smoke Exposure: Yes service: No Current occupational status: disabled Cognitive needs: No Hearing needs: No Vision needs: No Questionnaire Thrive Questionnaire Date Thrive assessed: 07/20/23 CAROLINE-7 AMB Questionnaire CAROLINE-7 Date CAROLINE - 7 assessed: 07/20/23 Source: Developed by Drs. Parish Paz, Deborah FriendZia and colleagues, with an educational sharon from [employer]. ACT Questionnaire In the past 4 weeks, how much of the time did your asthma keep you from getting as much done at work, school or at home?: None of the time During the past 4 weeks, how often have you had shortness of breath?: Not at all During the past 4 weeks, how often did your asthma symptoms wake you up at night or earlier than usual in the morning?: Not at all During the past 4 weeks, how often have you had to use your rescue inhaler or nebulizer medication?: Not at all How would you rate your asthma control during the past 4 weeks?: Completely controlled ACT Interpretation: Negative Score: 25 Review of Systems Const Denies body aches, Denies chills, Denies excessive sweating, Denies fatigue, Denies fever(s) and Denies headache(s) Eyes Denies blurry vision ENT Denies dysphagia, Denies vertigo, Denies dizziness, Denies headache(s), Denies hearing loss and Denies tinnitus Card Denies chest pain, Denies chest pain with activity, Denies syncope, Denies irregular heart rhythm and Denies dyspnea Resp Denies chest congestion, Denies cough, Denies hemoptysis, Denies dyspnea and Denies wheezing GI Denies abdominal pain, Denies melena, Denies hematochezia, Denies coffee ground emesis, Denies dysphagia, Denies diarrhea, Denies nausea and Denies vomiting Denies urinary frequency, Denies dysuria, Denies urinary hesitancy and Denies urinary urgency Musc Reports back pain, Denies arthralgias, Denies limited range of motion, Denies muscle cramps and Denies muscle weakness Skin/Breast Denies rash and Denies skin ulcer Neuro Denies Abnormal speech present, Denies confusion, Denies vertigo, Denies dizziness, Denies syncope, Denies headache(s), Denies memory loss and Denies seizure-like activity Psych Denies anxiety, Denies confusion, Denies depression, Denies memory loss, Denies panic attacks and Denies paranoia Endo Denies excessive sweating, Denies fatigue, Denies flushing, Denies polydipsia and Denies polyuria Aller/Immun Denies wheezing Physical exam (Primary Care) Vital Signs: Last Vital Signs Pulse 68 11/30/23 10:26 BP 112/70 11/30/23 10:26 Pulse Ox 96 11/30/23 10:26 Oxygen Delivery Method Room Air 11/30/23 10:26 BMI result Body Mass Index 37.7 BMI Assessment/Plan discussion: High BMI High, discussed plan: lifestyle, weight reduction, dietary and physical activity Tobacco/Smoking Status: Tobacco use Status Tobacco use date assessed 07/20/23 11/30/23 10:06 Patient Tobacco Use Status Current everyday Tobacco 11/30/23 10:06 Tobacco use type Cigarette 11/30/23 10:06 e-Cigarette/Vaping Use Never Used 11/30/23 10:06 Are you ready to quit: No Tobacco cessation counseling provided: Yes Items discussed: Nicotine replacement Relapse Prevention: discussed the importance of a supportive environment, discussed negative mood or depression after quitting, weight gain after smoking is common and discussed dietary, exercise and/or lifestyle changes Number of minutes spent counselin CPT code: 63116 - 4-10 Minutes Thrive Assessment: Date of Thrive Assessment Date Thrive assessed 07/20/23 11/30/23 10:06 Const General: cooperative, comfortable, no acute distress, alert and awake; No confusion Orientation/consciousness: oriented to person, oriented to place, patient oriented x3 and No confusion HENMT Head: Yes normocephalic Ears: external ears normal and TM's normal bilaterally Face and sinus: No sinus tenderness Mouth: Normal oral and palatal mucosa present and tongue normal Teeth and gingiva: dentition normal and gingiva normal Throat: Yes posterior oropharynx normal, Yes tonsils normal and Yes uvula midline Eyes Conjunctivae: conjunctivae normal Sclerae: sclerae normal Pupils: Equal, round and reactive pupils present EOM: EOMs intact bilaterally Direct Ophthalmoscopy: No no photophobia Neck Neck: Yes no lymphadenopathy, No tender and Yes no JVD Thyroid: Thyroid normal Carotids: no bruits Chest Chest palpation & inspection: no tenderness Resp Effort & Inspection: normal respiratory effort, no audible wheezes, not labored and no stridor Auscultation: no crackles, no rales, no rhonchi and no wheezes Cardio Jugular venous distension: no JVD Rate: regular rate, not bradycardic and not tachycardic Rhythm: regular rhythm Bruits: no carotid bruits Peripheral pulses: Peripheral pulses 2+ throughout GI Inspection: Yes normal to inspection, No abdominal wall ecchymosis and No visible herniation Palpation (GI): Soft to palpation, nontender, no guarding, not rigid and No hepatosplenomegaly present Auscultation: normoactive bowel sounds General: Yes no CVA tenderness Back/Spine/Pelvis Back: no CVA tenderness and No back tenderness Cervical Spine: cervical ROM normal Thoracic/Lumbar Spine: thoracic and lumbar spine normal to inspection, straight leg raise negative bilaterally, No thoraco-lumbar ROM limited and No lumbar spinal tenderness Skin Lesions: no lesions Rashes: no rashes Wounds: no wounds Neuro General: oriented to person, oriented to place, patient oriented x3, CN's II-XI intact bilaterally and No confusion Cranial nerves: Yes Equal, round and reactive pupils present and Yes Normal accommodation reflex present Cognition (Neuro): normal cognition Speech: No Abnormal speech present Gait exam (Neuro): Normal gait present Motor exam (neuro): 5/5 motor strength present throughout Extrem Right upper extremity: full ROM; no cyanosis Left upper extremity: full ROM; no cyanosis Right lower extremity: no edema Left lower extremity: no edema Psych Appearance: grossly normal Mental Status: mental status grossly normal Affect: normal affect Attitude: cooperative Thought process: Normal thought process present Assessment and Plan Assessment & Plan (1) Annual physical exam: Code(s): Z00.00 - Encounter for general adult medical examination without abnormal findings (2) Asthma: Code(s): J45.909 - Unspecified asthma, uncomplicated Qualifiers: Asthma complication type: uncomplicated Asthma persistence: persistent Asthma severity: mild Qualified Code(s): J45.30 - Mild persistent asthma, uncomplicated Plan: Patient reports her asthma has been fairly well controlled. Does have some exacerbations during spring and fall. Otherwise denies any nighttime awakenings with asthma symptoms or recent exacerbations. (3) Tobacco dependence: Code(s): F17.200 - Nicotine dependence, unspecified, uncomplicated Plan: She does report smoking on occasion. He does not want any nicotine patches or gum. (4) Failed back syndrome: Code(s): M96.1 - Postlaminectomy syndrome, not elsewhere classified Plan: Has history of lumbar spine fusion surgery. Has had chronic pain in her lower lumbar spine. Does use NSAID and tramadol on a p.r.n. basis for her pain. Does report acute on chronic lower lumbar spine with radicular symptoms down left lower extremity. Will supply patient with prednisone taper. We did discuss perhaps seeing back specialist again though patient not i nterested in any pain reduction modalities at this time. Patient declines physical therapy. (5) Borderline high cholesterol: Code(s): E78.9 - Disorder of lipoprotein metabolism, unspecified Plan: Patient has a history of borderline high cholesterol. Will recheck fasting lipids. Orders: Orders Lipid Panel Today E78.9 - Disorder of lipoprotein metabolism, unspecified Complete Blood Count no Diff Today J45.30 - Mild persistent asthma, uncomplicated Comprehensive [place]. Panel Fast Today E78.9 - Disorder of lipoprotein metabo lism, unspecified Medications: New prednisone Take 3 tablets x3 days, 2 tablets x3 days, 1 tablet x3 days 10 mg PO DIRECTED 18 tabs 0RF 9 days M96.1 - Postlaminectomy syndrome, not elsewhere classified Coding Level of Care Code Est Pt Prev Care 40-64y(19183) Diagnoses Annual physical exam Z00.00 Mild persistent asthma without complication J45.30 Asthma complication type: uncomplicated Asthma persistence: persistent Asthma severity: mild Tobacco dependence F17.200 Failed back syndrome M96.1 Borderline high cholesterol E78.9 Additional Codes Vital Signs *Quality* - CPT code: 76085 - 4-10 Minutes ([id number])
[2023-11-30 10:26] VITALS: BP 112/70; PULSE 68; O2SAT 96; BMI 37.7
== END 2023-11-30 10:50 | disposition home or self-care (01) ==
PROVIDERS: PCP Physician Assistant; Visit Provider Physician Assistant
DX: Z00.00 Encounter for general adult medical examination without abnormal findings (principal); J45.30 Mild persistent asthma, uncomplicated; F17.200 Nicotine dependence, unspecified, uncomplicated; M96.1 Postlaminectomy syndrome, not elsewhere classified; E78.9 Disorder of lipoprotein metabolism, unspecified
CPT/HCPCS: 99396; 99406

== ENCOUNTER 2024-02-13 11:19 | Emergency (ER) | payer OTHER, SELFPAY ==
--- NOTE | ~2024-02-13 | US_ITS ---
EXAMINATION: US TRIPLEX UPPER EXTREMITY, LEFT CLINICAL INFORMATION: Arm swelling and pain COMPARISON: None TECHNIQUE: Color-flow triplex imaging with spectral analysis and compression Doppler was performed on the left upper extremity. FINDINGS: The left internal jugular, subclavian, and axillary veins are patent and free of thrombus. The imaged segment of the left brachiocephalic vein is patent. Spectral doppler waveforms are normal. The brachial, basilic, cephalic, radial, and ulnar veins are patient and compressible. US/US venous duplex UE LT IMPRESSION: No evidence of deep venous thrombosis involving the left upper extremity. Electronically signed by: Rodriguez Salas MD 02/13/2024 03:28 PM EDT
--- NOTE | ~2024-02-13 | XR_ITS ---
EXAMINATION: XR HAND/WRIST, LEFT CLINICAL INFORMATION: Pain COMPARISON: None available. TECHNIQUE: PA, lateral, and oblique views of the left hand and wrist. FINDINGS: The bones and soft tissues are normal. No fracture. Alignment is anatomic. Joint spaces are maintained. No erosions or soft tissue calcifications. XR/XR hand wrist LT IMPRESSION: Normal radiographs of the hand and wrist. Electronically signed by: Nazia Ponce MD 02/13/2024 01:39 PM EDT RP
[2024-02-13 11:29] VITALS: BP 114/71; PULSE 77; RESP 20; TEMP 36.4; O2SAT 99; BMI 37.9
--- NOTE | 2024-02-13 11:46 | ED_ITS ---
HPI - Extremity Problem General Chief complaint: Extremity Injury, Upper Stated complaint: hand pain Time Seen by Provider: 02/13/24 12:21 Source: patient Mode of arrival: ambulatory Limitations: no limitations History of Present Illness ED Provider: Cheryle Santana APRN HPI Narrative: 53 yo female left hand dominant, currently not working here with complaints of left hand/wrist pain which radiates into the forearm since yesterday with no known injury or trauma. Patient denies any increase in use of her arm or activity yesterday. Reports she had a left hand injury at 9 years old in [place]. 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 She has baseline numbness/tingling in these digits. She denies any current associated weakness, redness, warmth, fevers, chills, SOB, CP. No recent travel/surgeries or hospitalizations. No oral hormone use. No leg swelling or leg pain. No history of DVT or PE or family history of same. Related Data Previous Rx's ?Medication ?Instructions ?Recorded diclofenac sodium 1 % topical gel 2 g topical QID PRN pain #100 grams 12/31/21 (Arthritis Pain (diclofenac)) cetirizine 10 mg capsule 10 mg PO DAILY PRN allergy 09/23/22 symptoms 90 days #90 caps albuterol sulfate 1.25 mg/3 mL 1.25 mg (3 mL) inhalation QID 07/20/23 solution for nebulization shortness of breath or wheezing 30 days #90 mL albuterol sulfate 90 mcg/actuation 2 puff inhalation Q4-6H PRN 07/20/23 aerosol inhaler shortness of breath or wheezing 30 days #8.5 grams fluticasone propionate 50 1 spray intranasal BID 30 days #16 07/20/23 mcg/actuation nasal grams spray,suspension (Flonase Allergy Relief) mupirocin 2 % topical ointment 1 appl topical TID 10 days #22 07/20/23 grams triamcinolone acetonide 0.1 % 1 appl topical DAILY 30 days #30 07/20/23 topical cream grams tramadol 50 mg tablet 50 mg PO Q6H PRN pain 7 days #28 11/09/23 tabs prednisone 10 mg tablet 10 mg PO DIRECTED 9 days #18 11/30/23 tabs ibuprofen 800 mg tablet 800 mg PO Q8H PRN pain 30 days #90 12/27/23 tabs lidocaine 5 % topical patch 1 patch topical DAILY 30 days #30 02/02/24 ea cyclobenzaprine 10 mg tablet 10 mg PO TID PRN muscle spasm #15 02/13/24 tabs Allergies Allergy/AdvReac Type Severity Reaction Status Date / Time nickel [NICKEL] Allergy Severe RASH Verified 02/13/24 11:33 aspirin [ASPIRIN] Allergy Unknown RASH Verified 02/13/24 11:33 niacin [From Nicotinex] AdvReac Intermediate Rash Verified 02/13/24 11:33 nicotine [From Nicoderm CQ] AdvReac Intermediate Dizziness Verified 02/13/24 11:33 nickel Allergy Unknown hives/rash Uncoded 11/30/23 10:33 Seafood Allergy Unknown Unknown Uncoded 11/30/23 10:33 Vicodin Allergy Unknown hives/rash Uncoded 11/30/23 10:33 Review of Systems Review of Systems: Yes all other systems are reviewed and are negative Constitutional: Constitutional: Reports no additional constitutional complaints, Denies body ache(s), Denies chills, Denies fever(s), Denies headache(s) and Denies weakness Eyes: Eyes: Reports no additional eye complaints and Denies change in vision ENT: Reports system reviewed and no additional complaints, except as documented, Denies dizziness, Denies headache(s), Denies nasal congestion, Denies nasal discharge and Denies neck pain Cardiovascular: Cardiovascular: Reports no additional cardiovascular complaints, Denies chest pain, Denies leg edema and Denies dyspnea Respiratory: Respiratory: Reports no additional respiratory complaints, Denies cough and Denies dyspnea Gastrointestinal: Gastrointestinal: Reports no additional gastrointestinal complaints, Denies abdominal pain, Denies diarrhea, Denies nausea and Denies vomiting Genitourinary: Genitourinary: Reports no additional female genitourinary complaints and Denies urinary incontinence Musculoskeletal: Musculoskeletal: Reports no additional musculoskeletal complaints, Denies back pain, Reports arthralgias, Reports joint swelling, Denies neck pain, Denies numbness, Reports radiating pain into limb and Denies tingling Integumentary/Breasts: Skin/Breast: Reports system reviewed and no additional complaints, except as docu and Denies rash Neurologic: Reports system reviewed and no additional complaints, except as documented, Denies Abnormal speech present, Denies dizziness, Denies headache(s), Denies numbness, Denies tingling and Denies weakness PMFSH Past Medical History Attestation statement: The following information was validated with the patient. Source: old records reviewed and nursing notes reviewed Medical History COVID-19 Cellulitis of skin Pruritic erythematous rash Surgical History Hx of cataract surgery (~2015) Status post ablation of incompetent vein using laser H/O tubal ligation S/P lumbar and lumbosacral fusion by anterior technique (~04/2012) Family History Family History Mother Hx of thyroid cancer Father Dengue Social History Social History Housing: Apartment Alcohol intake: never Patient Tobacco Use Status: Current everyday Tobacco user Tobacco use type: Cigarette Cigarettes Per Day: 2 e-Cigarette/Vaping Use: Never Used Second Hand Smoke Exposure: Yes Advance Directives: No Advance Directives Information Provided: No Do you have a plan to hurt others: No Plan service: No Current occupational status: disabled Cognitive needs: No Hearing needs: No Vision needs: No Physical Exam Vital Signs: Vital Signs: Last Vital Signs Temp 97.4 F 02/13/24 15:50 Pulse 68 02/13/24 15:50 Resp 18 02/13/24 15:50 BP 106/56 L 02/13/24 15:50 Pulse Ox 98 02/13/24 15:50 O2 Del Method Room Air 02/13/24 15:50 BMI result Body Mass Index 37.9 Const: General: cooperative, healthy appearing, comfortable and no acute distress Orientation/consciousness: patient oriented x3 Limitations: no limitations HEENT: Head: Yes normal to inspection Ears: hearing grossly normal bilaterally General nose exam: Normal external nose present Face and sinus: Yes normal facial exam Mouth: Normal oral and palatal mucosa present Throat: Yes posterior oropharynx normal Eyes: General: appearance normal, both eyes and all related structures Pupils: Equal, round and reactive pupils present Neck: Neck: Yes normal visual inspection Chest: Chest palpation & inspection: normal inspection of the chest Resp: Effort & Inspection: normal respiratory effort Auscultation: clear to auscultation bilaterally Cardio: Rate: regular rate Rhythm: regular rhythm Peripheral pulses: Peripheral pulses 2+ throughout GI: Inspection: Yes normal to inspection Palpation (GI): Soft to palpation and nontender Auscultation: normal bowel sounds Back/Spine/Pelvis: Thoracic/Lumbar Spine: thoracic and lumbar spine normal to inspection Skin: General skin exam: no rashes or lesions noted Neuro: General: patient oriented x3, no focal motor deficits and normal sensation to monofilament Cranial nerves: Yes Equal, round and reactive pupils present Cognition (Neuro): normal cognition Speech: No Abnormal speech present Gait exam (Neuro): Normal gait present Motor exam (neuro): 5/5 motor strength present throughout Extrem: Other: Over the left palm there is swelling/ecchymosis and TTP. Pain with passive ROM of left hand/wrist. Digital ROM normal. ROM of left elbow/shoulder normal. NO warmth or redness appreciated. Sensation normal 2+ radial/ulnar pulses. Course Course Course Narrative: RME performed by Nicki Potts PA-C. Patient is a 53 year old assigned female at presenting to the emergency department with left hand pain. Patient states she has noticed bruising and swelling to her left hand and has pain that radiates up and into her left shoulder. Detailed physical exam and review of systems are deferred to the access clinician. Imaging ordered. Patient placed back in the waiting room pending room availability and results. Reevaluation(s) Reevaluation #1: Ultrasound is negative for DVT. X-ray shows no bony abnormality. Patient placed in wrist splint. Recommend follow up outpatient with primary care doctor. Reviewed worrisome signs and symptoms of when to return to the emergency room. Comfortable plan for discharge home. Medical Decision Making Medical Decision Making MDM Narrative: 53 yo female left hand dominant, currently not working here with complaints of left hand/wrist pain which radiates into the forearm since yesterday with no known injury or trauma. Patient denies any increase in use of her arm or activity yesterday. Reports she had a left hand injury at 9 years old in [place]. 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 She has baseline numbness/tingling in these digits. She denies any current associated weakness, redness, warmth, fevers, chills, SOB, CP. No recent travel/surgeries or hospitalizations. No oral hormone use. No leg swelling or leg pain. No history of DVT or PE or family history of same. Over the left palm there is swelling/ecchymosis and TTP. Pain with passive ROM of left hand/wrist. Digital ROM normal. ROM of left elbow/shoulder normal. NO warmth or redness appreciated. Sensation normal 2+ radial/ulnar pulses. Will need x-rays, US LUE Differential Diagnosis Differential Diagnoses: The differential diagnosis associated with the presentation includes Sprain, strain, radiculopathy, DVT Low suspicion for fracture, dislocation, septic joint, vascular injury Admission/Observation Consideration of admission/observation: Escalation of care including admission/observation considered Low suspicion for fracture, dislocation, septic joint, vascular injury requiring advanced imaging, urgent ortho consultation Independent Interpretation I performed an independent interpretation of an: Plain X-Ray and Ultrasound Interpretation: I independently viewed the x-ray and the ultrasound agree with Radiology report Radiology Impression Discussion of test interpretation with radiology: I have reviewed the radiologist's reading. Radiologist Impression: Launch?Image [place] [address] XRay Report Signed Patient: Fany Tucker MR#: [id number] : 1970 Acct:[id number] Age/Sex: 53 / F ADM Date: 02/13/24 Loc: .ED Attending Dr: Ordering Physician: Grover Phillips MD Date of Service: 02/13/24 Procedure(s): XR hand wrist LT Accession Number(s): [id number] cc: Flaco Rosales PA-C; Grover Phillips MD~ EXAMINATION: XR HAND/WRIST, LEFT CLINICAL INFORMATION: Pain COMPARISON: None available. TECHNIQUE: PA, lateral, and oblique views of the left hand and wrist. FINDINGS: The bones and soft tissues are normal. No fracture. Alignment is anatomic. Joint spaces are maintained. No erosions or soft tissue calcifications. XR/XR hand wrist LT IMPRESSION: Normal radiographs of the hand and wrist. [address] [address] Ultrasound Report Signed Patient: Fany Tucker MR#: [id number] : 1970 Acct:[id number] Age/Sex: 53 / F ADM Date: 02/13/24 Loc: HO.ED Attending Dr: Ordering Physician: Cheryle Vail NP Date of Service: 02/13/24 Procedure(s): US venous duplex UE LT Accession Number(s): [id number] cc: Flaco Rosales PA-C; Cheryle Vail NP~ EXAMINATION: US TRIPLEX UPPER EXTREMITY, LEFT CLINICAL INFORMATION: Arm swelling and pain COMPARISON: None TECHNIQUE: Color-flow triplex imaging with spectral analysis and compression Doppler was performed on the left upper extremity. FINDINGS: The left internal jugular, subclavian, and axillary veins are patent and free of thrombus. The imaged segment of the left brachiocephalic vein is patent. Spectral doppler waveforms are normal. The brachial, basilic, cephalic, radial, and ulnar veins are patient and compressible. US/US venous duplex UE LT IMPRESSION: No evidence of deep venous thrombosis involving the left upper extremity. Prescription Management I considered prescription management with: Pain Medication Procedures Orthopedic Splinting/Casting Injury #1: Side: left Upper Extremity Injury Location: wrist Upper Extremity Immobilizer: wrist splint Discharge Plan Discharge Clinical Impression: Arm pain Patient Disposition: Home, Self-Care Instructions: Arm Pain (ED) Additional Instructions: Take ibuprofen 3 times daily for the next few days Elevate the extremity Apply heat or ice Use the splint for comfort as needed Take the muscle relaxant if you need it Follow up with primary care doctor next week for any continued symptoms Prescriptions: New cyclobenzaprine 10 mg tablet 10 mg PO TID PRN (Reason: muscle spasm) Qty: 15 0RF No Action cetirizine 10 mg capsule 10 mg PO DAILY PRN (Reason: allergy symptoms) 90 Days Qty: 90 1RF tramadol 50 mg tablet 50 mg PO Q6H PRN (Reason: pain) 7 Days Qty: 28 0RF ibuprofen 800 mg tablet 800 mg PO Q8H PRN (Reason: pain) 30 Days Qty: 90 3RF lidocaine 5 % adhesive patch,medicated 1 patch topical DAILY 30 Days Qty: 30 3RF Rx Instructions: leave on most painful area for up to 12 hrs diclofenac sodium [Arthritis Pain (diclofenac)] 1 % gel 2 g topical QID PRN (Reason: pain) Qty: 100 3RF Rx Instructions: apply to single elbow, wrist or hand; for hand includes palm/fingers/back of hand triamcinolone acetonide 0.1 % cream 1 appl topical DAILY 30 Days Qty: 30 3RF mupirocin 2 % ointment 1 appl topical TID 10 Days Qty: 22 3RF albuterol sulfate 90 mcg/actuation HFA aerosol inhaler 2 puff inhalation Q4-6H PRN (Reason: shortness of breath or wheezing) 30 Days Qty: 8.5 3RF albuterol sulfate 1.25 mg/3 mL solution for nebulization 1.25 mg inhalation QID 30 Days Qty: 90 3RF fluticasone propionate [Flonase Allergy Relief] 50 mcg/actuation spray,suspension 1 spray intranasal BID 30 Days Qty: 16 6RF Rx Instructions: administer into each nostril prednisone 10 mg tablet 10 mg PO DIRECTED 9 Days Qty: 18 0RF Rx Instructions: Take 3 tablets x3 days, 2 tablets x3 days, 1 tablet x3 days Referrals: Flaco Rosales PA-C [Primary Care Provider] - 1 week Interventions: ED Discharge Assessment Last Done: 02/13/24 15:50 Discharge Date/Time: 02/13/24 15:51 Print Language: Citizen [place]
[2024-02-13 14:05] VITALS: BP 101/59; PULSE 69; RESP 18; TEMP 36.6; O2SAT 98
--- NOTE | 2024-02-13 14:06 | PC.NURSE ---
patient a&ox3, vss, pt c/o 02/17 left hand/arm pain, pt did not medicate with otc medications at home for pain. xray was obtained, pt waiting to see provider, will continue plan of care
--- NOTE | 2024-02-13 14:40 | PC.NURSE ---
pt to ultrasound
[2024-02-13 15:50] VITALS: BP 106/56; PULSE 68; RESP 18; TEMP 36.3; O2SAT 98
== END 2024-02-13 15:51 | disposition home or self-care (01) ==
PROVIDERS: Emergency Provider Internal Medicine; PCP Physician Assistant
DX: M79.602 Pain in left arm (principal)
CPT/HCPCS: 73110; 73130; 93971; 99284

== ENCOUNTER 2024-02-16 11:05 | Outpatient (AMB) | payer OTHER, SELFPAY ==
--- NOTE | 2024-02-16 11:08 | MHC.PC.OV ---
Vital Signs 02/16/24 11:19 Height 5 ft 1 in Weight 203 lb BMI 38.4 BP 118/80 Blood Pressure Location Lt brachial Position Sitting Pulse 77 Pulse Source Pulse Oximeter Pulse Oximetry (%) 97 Oxygen Delivery Method Room Air Intake [place] [facility] [place] hand pain Top Collar Maker Required: No Accompanied by: Daughter Allergies nickel [NICKEL] Allergy (Severe, Verified 02/16/24 11:13) RASH aspirin [ASPIRIN] Allergy (Unknown, Verified 02/16/24 11:13) RASH niacin [From Nicotinex] Adverse Reaction (Intermediate, Verified 02/16/24 11:13) Rash nicotine [From Nicoderm CQ] Adverse Reaction (Intermediate, Verified 02/16/24 11:13) Dizziness nickel Allergy (Unknown, Uncoded 02/16/24 11:13) hives/rash Seafood Allergy (Unknown, Uncoded 02/16/24 11:13) Unknown Vicodin Allergy (Unknown, Uncoded 02/16/24 11:13) hives/rash Tobacco use date assessed: 07/20/23 Dental Screening Dental Screen Date: 07/20/23 HPI [facility] [place] hand pain HPI Details Patient is a 53-year-old female here today for ER follow-up visit. She was seen at the ER for left hand and wrist pain without any recent trauma history. She has had surgery to repair nerves in her left hand and wrist in the past. While in the ER she underwent ultrasound of the right upper extremity along with x-ray of the hand and wrist without any significant abnormalities. 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 Through her elbow into her shoulder. She has developed some bruising in her hand as well. [facility] Medical History COVID-19 Cellulitis of skin Pruritic erythematous rash Surgical History Hx of cataract surgery (~2015) Status post ablation of incompetent vein using laser H/O tubal ligation S/P lumbar and lumbosacral fusion by anterior technique (~04/2012) Family History Mother Hx of thyroid cancer Father Dengue Social History Housing: Apartment Alcohol intake: never Patient Tobacco Use Status: Current everyday Tobacco user Tobacco use type: Cigarette Cigarettes Per Day: 2 e-Cigarette/Vaping Use: Never Used Second Hand Smoke Exposure: Yes service: No Current occupational status: disabled Cognitive needs: No Hearing needs: No Vision needs: No Questionnaire PHQ-9 Over the last 2 weeks, how often have you been bothered by any of the following problems? 1. Little interest or pleasure in doing things: not at all 2. Feeling down, depressed, or hopeless: not at all 3. Trouble falling or staying asleep, or sleeping too much: not at all 4. Feeling tired or having little energy: not at all 5. Poor appetite or overeating: not at all 6. Feeling bad about yourself - or that you are a failure or have let yourself or your family down: not at all 7. Trouble concentrating on things, such as reading the newspaper or watching television: not at all 8. Moving or speaking so slowly that other people could have noticed. Or the opposite - being so fidgety or restless that you have been moving around a lot more than usual: not at all 9. Thoughts that you would be better off or of hurting yourself in some way: not at all Total score: 0 Depression Screening Interpretation: Negative Depression Screening Done: Yes 20196 - PHQ-9 Billing: Yes Source: Developed by Drs. Parish Paz, Deborah Friend, Zia Sharp and colleagues, with an educational sharon from [employer]. Thrive Questionnaire Date Thrive assessed: 07/20/23 CAROLINE-7 AMB Questionnaire CAROLINE-7 Date CAROLINE - 7 assessed: 07/20/23 Source: Developed by Drs. Parish Paz, Deborah Friend, Zia Sharp and colleagues, with an educational sharon from [employer]. Review of Systems Const Denies headache(s) Eyes Denies loss of vision ENT Denies vertigo, Denies dizziness, Denies headache(s) and Denies sore throat Card Denies chest pain, Denies leg edema and Denies lightheadedness Resp Denies cough, Denies hemoptysis and Denies wheezing GI Denies abdominal pain, Denies melena, Denies constipation, Denies diarrhea and Denies vomiting Denies urinary frequency, Denies dysuria and Denies urinary urgency Musc Denies arthralgias, Denies joint swelling, Denies numbness and Denies tingling Neuro Denies Abnormal speech present, Denies behavioral changes, Denies vertigo, Denies dizziness, Denies headache(s), Denies loss of vision, Denies memory loss, Denies numbness and Denies tingling Psych Denies anxiety, Denies behavioral changes, Denies depression, Denies memory loss and Denies panic attacks Sam/Lymph Denies easy bleeding and Denies easy bruising Aller/Immun Denies wheezing Physical exam (Primary Care) Vital Signs: Last Vital Signs Pulse 77 02/16/24 11:19 BP 118/80 02/16/24 11:19 Pulse Ox 97 02/16/24 11:19 Oxygen Delivery Method Room Air 02/16/24 11:19 BMI result Body Mass Index 38.4 Tobacco/Smoking Status: Tobacco use Status Tobacco use date assessed 07/20/23 02/16/24 11:08 Patient Tobacco Use Status Current everyday Tobacco 02/16/24 11:08 Tobacco use type Cigarette 02/16/24 11:08 e-Cigarette/Vaping Use Never Used 02/16/24 11:08 PHQ-9: PHQ-9 Score PHQ-9: Total score 0 02/16/24 11:13 Depression Screening Interpretation: Negative Thrive Assessment: Date of Thrive Assessment Date Thrive assessed 07/20/23 02/16/24 11:08 Const General: healthy appearing, no acute distress, alert and awake Nutritional Appearance: well nourished Orientation/consciousness: oriented to person, oriented to place and oriented to time HENND Ears: TM's normal bilaterally General nose exam: Normal nasal mucous membranes and turbinates present Eyes Conjunctivae: conjunctivae normal Sclerae: sclerae normal Pupils: Equal, round and reactive pupils present Neck Neck: Yes no lymphadenopathy and Yes no JVD Thyroid: Thyroid normal Carotids: no bruits Resp Effort & Inspection: normal respiratory effort and not tachypneic Auscultation: no crackles, no rales, no rhonchi and no wheezes Cardio Rate: regular rate Rhythm: regular rhythm Heart sounds: no murmurs and normal S1 and S2 GI Palpation (GI): Soft to palpation, nontender, no hepatomegaly and no splenomegaly Auscultation: normal bowel sounds Skin General skin exam: no rashes or lesions noted and dry skin Neuro General: oriented to person, oriented to place and oriented to time Cranial nerves: Yes Equal, round and reactive pupils present Speech: No Abnormal speech present Gait exam (Neuro): Normal gait present Motor exam (neuro): no tremor noted Extrem Other: LEFT HAND: 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, NOTED ECCHYMOSIS OVER THE PALM AND POSTERIOR ASPECT OF HAND Right upper extremity: full ROM Left upper extremity: full ROM Right lower extremity: full ROM; no edema Left lower extremity: full ROM; no edema Psych Mental Status: mental status grossly normal Speech and movement: Normal speech and movement present Affect: normal affect Attitude: cooperative Thought process: Normal thought process present Coding Level of Care Code Est Pt Level 4 (86233) Diagnoses Neuropathy of left upper extremity G56.92 Hand weakness R29.898 Assessment & Plan Assessment & Plan (1) Neuropathy of left upper extremity: Code(s): G56.92 - Unspecified mononeuropathy of left upper limb Category: Medical Plan: Patient seems to have some kind of neuropathic pain in her right forearm and hand. She has developed some bruising in her palm and posterior aspect of her hand. She has underwent a Doppler ultrasound of the left upper extremity without any significant findings..Will send for MRI of hand to evaluate soft tissue structures. We did discuss perhaps getting a repeat EMG to evaluate her nerves though patient declining at this time. She would likely benefit from occupational therapy to help with regaining hand strength and dexterity. (2) Hand weakness: Code(s): R29.898 - Other symptoms and signs involving the musculoskeletal system Category: Medical Plan: As above Orders: Orders MR hand LT wo con Today R29.898 - Other symptoms and signs involving the musculoskeletal system OT Evaluation and Treatment Today R29.898 - Other symptoms and signs involving the musculoskeletal system Referrals Orthopedics Referral G56.10 - Other lesions of median nerve, unspecified upper limb, G56.92 - Unspecified mononeuropathy of left upper limb
[2024-02-16 11:19] VITALS: BP 118/80; PULSE 77; O2SAT 97; BMI 38.4
== END 2024-02-16 12:07 | disposition home or self-care (01) ==
PROVIDERS: PCP Physician Assistant; Visit Provider Physician Assistant
DX: G56.92 Unspecified mononeuropathy of left upper limb (principal); R29.898 Other symptoms and signs involving the musculoskeletal system

== ENCOUNTER → 2024-02-16 11:05 | Outpatient (BNVA) | payer OTHER, SELFPAY | PROVIDERS: PCP Physician Assistant; Visit Provider Physician Assistant | DX: G56.92 Unspecified mononeuropathy of left upper limb (principal) | CPT/HCPCS: 99212 ==

== ENCOUNTER 2024-03-15 09:58 | Outpatient (AMB) | payer OTHER, SELFPAY ==
[2024-03-15 10:22] VITALS: BMI 38.4
--- NOTE | 2024-03-15 10:22 | MHC.OFFVIS ---
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 Patient reports history of left hand swelling as well as left hand DVT, seen at [facility] [place] [facility] February,. 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 Patient wears a brace daily to help with the numbness and tingling. She states she was given a steroid injection on her left wrist but is unsure who administered it or when this was done. Patient reports left hand surgery due to an injury causing nerve damage on her left index and left ring fingers, back in [place], when she was 11-12 years old. No EMG done. 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 She was seen in the ED on 02/13/24 for left hand swelling, bruising, & pain, and had an US done which ruled out any DVT. She complains of numbness & weakness in her left hand. She complains of numbness in her thumb, index, and middle fingers. Symptoms intermittent, but daily, worse at night. She says this has been present for several years, but has worsened in the last few weeks. She reports having an injury & surgery at ~9 years old, which she says resulted in nerve damage and caused her to have intermittent numbness in her ring & small fingers. 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 She says when she went to the ED, she felt a sharp pain randomly in her hand, and the next morning she woke up with bruising in her palm & back of her hand. She denies any falls or known injury. She reports a Hx of a previous left dorsal hand injection, which she was told was for carpal tunnel syndrome, done at [place] but is unsure when it was done. She says this was done in the dorsal aspect of her wrist, just proximal to the MCP joints. She denies a Hx of a NCS. She denies any numbness in her right hand. [facility] Medical History COVID-19 Cellulitis of skin Pruritic erythematous rash Surgical History Hx of cataract surgery (~2015) Status post ablation of incompetent vein using laser H/O tubal ligation S/P lumbar and lumbosacral fusion by anterior technique (~04/2012) Family History Mother Hx of thyroid cancer Father Dengue Social History (Updated 03/15/24 @ 10:32 by GENE Borges) Housing: Apartment Alcohol intake: never Patient Tobacco Use Status: Current everyday Tobacco user Tobacco use type: Cigarette Cigarettes Per Day: 2 e-Cigarette/Vaping Use: Never Used Second Hand Smoke Exposure: Yes service: No Current occupational status: disabled Current occupation: left handed Cognitive needs: No Hearing needs: No Vision needs: No Review of Systems Const All systems reviewed & are unremarkable except as noted in HPI and below Physical Exam Vital Signs: BMI result Body Mass Index 38.4 Const General: cooperative, healthy appearing and no acute distress Orientation/consciousness: patient oriented x3 HEENT Head: Yes normocephalic and Yes atraumatic Eyes EOM: EOMs intact bilaterally Resp Effort & Inspection: normal respiratory effort and able to speak in complete sentences Cardio Jugular venous distension: no JVD Skin General skin exam: turgor normal Rashes: no rashes Neuro General: patient oriented x3 Extrem Other: Evaluation of Left Upper Extremity: The patient is alert, oriented, and in no acute distress Neuro: Normal sensation in the median nerve distribution. Decreased subjective sensation to both the radial & ulnar aspects of her ring & small fingers, which has been present since she was ~9 years old. No thenar or intrinsic wasting Good APB muscle belly firing and good finger cross Vascular: Cap refill brisk ROM: She can make a fist and extend all her digits Skin: No lacerations or abrasions. General: No Ecchymosis. No Erythema or evidence of infection. Psych Appearance: grossly normal Affect: normal affect Attitude: cooperative Assessment & Plan Assessment & Plan (1) Numbness and tingling in left hand: Code(s): R20.0 - Anesthesia of skin; R20.2 - Paresthesia of skin Category: Medical Plan Assessment & Plan: 1. Left hand numbness In the median nerve distribution Symptoms intermittent, but daily, worse at night 2. Left hand numbness in the small and ring fingers Related to a palmar injury and subsequent surgery surgery done when ~9 years old More persistent decreased subjective sensation & tingling since this that time I educated her about carpal tunnel syndrome I ordered a NCS to assess for peripheral nerve compression She will follow up when completed for review Scribed for Yumiko Braswell MD by Gallo Razo, bilingual medical receptionist, on 03/15/24 at 11:00 AM, EST. Orders: Orders NE nerve conduction velocity Today R20.0 - Anesthesia of skin, R20.2 - Paresthesia of skin Coding Level of Care Code New Pt Level 3 (36535) Diagnoses Numbness and tingling in left hand R20.0; R20.2
== END 2024-03-15 11:07 | disposition home or self-care (01) ==
LOC: HO.HOS 09:59
PROVIDERS: PCP Physician Assistant; Visit Provider Orthopaedic Surgery
DX: R20.0 Anesthesia of skin (principal); R20.2 Paresthesia of skin
CPT/HCPCS: 99203

== ENCOUNTER → 2024-03-15 09:58 | Outpatient (BNVA) | payer OTHER, SELFPAY | PROVIDERS: PCP Physician Assistant; Visit Provider Orthopaedic Surgery | DX: R20.0 Anesthesia of skin (principal); R20.2 Paresthesia of skin | CPT/HCPCS: 99202 ==

== ENCOUNTER → 2024-06-01 09:58 | Outpatient (BNVA) | payer OTHER, SELFPAY | PROVIDERS: PCP Physician Assistant; Visit Provider Physician Assistant | DX: M96.1 Postlaminectomy syndrome, not elsewhere classified (principal); R20.0 Anesthesia of skin; E66.812 Obesity, class 2; E78.9 Disorder of lipoprotein metabolism, unspecified | CPT/HCPCS: 96127; 99212 ==

== ENCOUNTER → 2024-06-17 09:48 | Outpatient (BNV) | payer OTHER, SELFPAY | PROVIDERS: PCP Physician Assistant; Visit Provider Radiology Diagnostic Radiology | DX: M65.942 Unspecified synovitis and tenosynovitis, left hand (principal); M65.242 Calcific tendinitis, left hand; M85.642 Other cyst of bone, left hand | CPT/HCPCS: 73218 ==

== ENCOUNTER 2024-06-17 09:49 | Outpatient (REF) | payer OTHER, SELFPAY | END 2024-06-17 09:50 | disposition home or self-care (01) | LOC: HO.MRI 09:49 | PROVIDERS: PCP Physician Assistant; Visit Provider Physician Assistant | DX: R29.898 Other symptoms and signs involving the musculoskeletal system (principal) ==

== ENCOUNTER 2024-07-27 10:21 | Outpatient (AMB) | payer OTHER, SELFPAY ==
--- NOTE | 2024-07-27 10:24 | MHC.OFFVIS ---
Vital Signs 07/27/24 10:31 Height 5 ft 1 in Weight 206 lb BMI 38.9 Handedness Left Intake Visit Reasons: OV: synovitis and tenosynovitis, left hand Intake Note: Fany is a 54 year old left hand dominant female who presents today for a follow up of her left hand pain. Patient was last seen in office on 03/15/[address] Yumiko Braswell who ordered her a NCS at the time of that visit. She was scheduled on 04/20/24 for her EMG/NCS however she did not attend this appointment. She mentions that her hand his numb all through the day and night. Patient is interested in talking about surgery if she is able to but she doesn't want an injection. Allergies nickel [NICKEL] Allergy (Severe, Verified 07/27/24 10:29) RASH aspirin [ASPIRIN] Allergy (Unknown, Verified 07/27/24 10:29) RASH niacin [From Nicotinex] Adverse Reaction (Intermediate, Verified 07/27/24 10:29) Rash nicotine [From Nicoderm CQ] Adverse Reaction (Intermediate, Verified 07/27/24 10:29) Dizziness nickel Allergy (Unknown, Uncoded 06/01/24 10:13) hives/rash Seafood Allergy (Unknown, Uncoded 06/01/24 10:13) Unknown Vicodin Allergy (Unknown, Uncoded 06/01/24 10:13) hives/rash HPI HPI OV: synovitis and tenosynovitis, left hand: Details: Fany is a 54 year old left hand dominant female who presents today for a follow up of her left hand pain. Patient was last seen in office on 03/15/[address] Yumiko Braswell who ordered her a NCS at the time of that visit. She was scheduled on 04/20/24 for her EMG/NCS however she did not attend this appointment. She mentions that her hand his numb all through the day and night. Patient is interested in talking about surgery if she is able to but she doesn't want an injection. [facility] Medical History (Updated 06/27/24 @ 10:21 by Flaco Rosales PA-C) Lymphedema COVID-19 Cellulitis of skin Pruritic erythematous rash Surgical History Hx of cataract surgery (~2016) Status post ablation of incompetent vein using laser H/O tubal ligation S/P lumbar and lumbosacral fusion by anterior technique (~04/2012) Family History Mother Hx of thyroid cancer Father Dengue Social History Housing: Apartment Alcohol intake: never Patient Tobacco Use Status: Current everyday Tobacco user Tobacco use type: Cigarette Cigarette Packs Per Day: 0.25 Cigarettes Per Day: 2 e-Cigarette/Vaping Use: Never Used Second Hand Smoke Exposure: Yes service: No Current occupational status: disabled Current occupation: left handed Cognitive needs: No Hearing needs: No Vision needs: Yes (Glasses) Review of Systems Const All systems reviewed & are unremarkable except as noted in HPI and below Physical Exam Vital Signs: BMI result Body Mass Index 38.9 Const General: cooperative, healthy appearing and no acute distress Orientation/consciousness: patient oriented x3 HEENT Head: Yes normocephalic and Yes atraumatic Eyes EOM: EOMs intact bilaterally Resp Effort & Inspection: normal respiratory effort and able to speak in complete sentences Cardio Jugular venous distension: no JVD Skin General skin exam: turgor normal Rashes: no rashes Neuro General: patient oriented x3 Extrem Other: Evaluation of Left Upper Extremity: The patient is alert, oriented, and in no acute distress Neuro: Normal sensation in the median and ulnar nerve distribution No thenar or intrinsic wasting Good APB muscle belly firing and good finger cross Vascular: Cap refill brisk ROM: She can make a fist and extend all her digits Skin: No lacerations or abrasions. General: No Ecchymosis. No Erythema or evidence of infection. Psych Appearance: grossly normal Affect: normal affect Attitude: cooperative Assessment & Plan Assessment & Plan (1) Tenosynovitis of left hand: Code(s): M65.942 - Unspecified synovitis and tenosynovitis, left hand Category: Medical (2) Numbness and tingling in left hand: Code(s): R20.0 - Anesthesia of skin; R20.2 - Paresthesia of skin Category: Medical Plan 1. Numbness and tingling of left hand EMG and nerve conduction study ordered today to assess the health of the nerves of the left upper extremity Patient will follow-up after EMG and nerve conduction study for results review and discussion of further treatment options if indicated Patient was amenable to this plan 2. Diffuse noninfectious tenosynovitis of extensor tendons of left hand 3. ECU tenosynovitis of left wrist Seen on MRI Patient is educated about this condition Patient is educated about the typical recovery course Patient was referred to occupational therapy for range of motion and strengthening of the left hand and wrist Patient was also provided with a Velcro wrist splint to wear when her wrist is particularly bothersome Patient was amenable to this plan Orders: Orders OT Evaluation and Treatment Today M65.942 - Unspecified synovitis and tenosynovitis, left hand NE nerve conduction velocity Today R20.0 - Anesthesia of skin, R20.2 - Paresthesia of skin NE electromyogram (EMG) Today R20.0 - Anesthesia of skin, R20.2 - Paresthesia of skin Coding Level of Care Code Est Pt Level 3 (58879) Diagnoses Tenosynovitis of left hand M65.942 Numbness and tingling in left hand R20.0; R20.2
[2024-07-27 10:31] VITALS: BMI 38.9
== END 2024-07-27 10:52 | disposition home or self-care (01) ==
LOC: HO.HOS 10:21
PROVIDERS: PCP Physician Assistant
DX: M65.942 Unspecified synovitis and tenosynovitis, left hand (principal); R20.0 Anesthesia of skin; R20.2 Paresthesia of skin
CPT/HCPCS: 99213

== ENCOUNTER → 2024-07-27 10:21 | Outpatient (BNVA) | payer OTHER, SELFPAY | PROVIDERS: PCP Physician Assistant | DX: M65.942 Unspecified synovitis and tenosynovitis, left hand (principal); R20.0 Anesthesia of skin; R20.2 Paresthesia of skin | CPT/HCPCS: 99212 ==

== ENCOUNTER 2024-11-10 10:47 | Outpatient (AMB) | payer OTHER, SELFPAY ==
[2024-11-10 11:26] VITALS: BP 104/66; PULSE 62; TEMP 36.8; O2SAT 98; BMI 39.9
--- NOTE | 2024-11-10 11:26 | AM.OFFWIN_ITS ---
Intake Vital Signs 11/10/24 11:26 Height 5 ft 1 in Weight 211 lb BMI 39.9 BP 104/66 Blood Pressure Location Lt brachial Position Sitting Pulse 62 Pulse Source Pulse Oximeter Temp 98.2 F Temp Source Oral Pulse Oximetry (%) 98 Oxygen Delivery Method Room Air Intake Visit Reasons: EP pain & swollen RT arm near elbow area Intake Note: presents with right hand radiating pain up arm and to right breast after gardening 5 days ago, skin is sensitive to touch Patient Tobacco Use Status: Current everyday Tobacco user Allergies nickel (NICKEL) Allergy (Severe, Verified 11/10/24 11:30) RASH aspirin (ASPIRIN) Allergy (Unknown, Verified 11/10/24 11:30) RASH niacin (From Nicotinex) Adverse Reaction (Intermediate, Verified 11/10/24 11:30) Rash nicotine (From Nicoderm CQ) Adverse Reaction (Intermediate, Verified 11/10/24 11:30) Dizziness nickel Allergy (Unknown, Uncoded 06/01/24 10:13) hives/rash Seafood Allergy (Unknown, Uncoded 06/01/24 10:13) Unknown Vicodin Allergy (Unknown, Uncoded 06/01/24 10:13) hives/rash Do you need a note to return to daycare/school/sports/work: No HPI HPI Comments History of Present Illness Details History of Present Illness - The patient is a 54-year-old female pr esenting with right elbow pain. - The pain began five days ago following the lifting of a heavy pot while gardening. - The pain is persistent, exacerbated at night, and described as burning and pulsing. - Hurts to touch the elbow and when she moves her arm. - There is associated tingling in the fi ngers and tenderness on palpation of the elbow. - The patient has attempted topical danette tments such as Vicks, without relief. - She denies numbness and tingling. - She is left hand dominant. - She denies shoulder pain, upper arm pa in, wrist pain or hand pain. Physical Exam General: Cooperative, healthy appearing, comfortable, no acute distress and well developed Orientation: Patient oriented x3 Respiratory: Normal respiratory effort and able to speak in complete sentences. Clear to auscultation bilaterally Cardiovascular: Regular rate and rhythm. Normal S1 and S2 Skin: No rashes or lesions noted Neuro: Sensation intact. Extremities: Normal inspection of the right upper extremity. FROM of the right elbow and wrist. FROM of the digits on the right hand. TTP of the right medial epicondyle. No TTP of the olecranon and lateral epicondyle. Negative Finklestein test on the right. Supination and pronation intact. FROM Of the right shoulder. Hand show operations supervisor is intact. Strength is 5/5 on the UE bilaterally. Patient was informed and verbally consented to the use of an ambient scribe for clinic note documentation during this visit. [facility] Medical History (Updated 09/29/24 @ 10:36 by Falco Rosales PA-C) Lymphedema COVID-19 Cellulitis of skin Pruritic erythematous rash Surgical History Hx of cataract surgery (~2015) Status post ablation of incompetent vein using laser H/O tubal ligation S/P lumbar and lumbosacral fusion by anterior technique (~04/2012) Family History Mother Hx of thyroid cancer Father Dengue Social History Housing: Apartment Alcohol intake: never Patient Tobacco Use Status: Current everyday Tobacco user Tobacco use type: Cigarette Cigarette Packs Per Day: 0.25 Cigarettes Per Day: 2 e-Cigarette/Vaping Use: Never Used Second Hand Smoke Exposure: Yes service: No Current occupational status: disabled 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 occupation: left handed Cognitive needs: No Hearing needs: No Vision needs: Yes (Glasses) Review of Systems Const All systems reviewed & are unremarkable except as noted in HPI and below Physical Exam Vital Signs: Last Vital Signs Temp 98.2 F 11/10/24 11:26 Pulse 62 11/10/24 11:26 BP 104/66 11/10/24 11:26 Pulse Ox 98 11/10/24 11:26 Oxygen Delivery Method Room Air 11/10/24 11:26 BMI result Body Mass Index 39.9 Assessment & Plan Assessment & Plan (1) Elbow pain, right: Code(s): M25.521 - Pain in right elbow Plan Most likely tendonitis vs bursitis vs tenosynovitis vs fracture vs strain Plan - An x-ray of the right elbow will be performed to rule out fractures or structural issues. - The use of an reina wrap is suggested to provide support and relieve symptoms of potential tendonitis. - Mobic as needed for pain - rest, ice, and elevation - follow up with PCP Orders: Orders XR elbow RT min 3V Today M25.521 - Pain in right elbow Medications: New meloxicam 15 mg PO DAILY 15 tabs 0RF Coding Level of Care Code Est Pt Level 4 (34835) Diagnoses Elbow pain, right M25.521
== END 2024-11-10 12:22 | disposition home or self-care (01) ==
PROVIDERS: PCP Physician Assistant; Visit Provider Physician Assistant Medical
DX: M25.521 Pain in right elbow (principal)

== ENCOUNTER 2024-11-10 10:47 | Outpatient (REF) | payer OTHER, SELFPAY ==
--- NOTE | ~2024-11-10 | XR_ITS ---
EXAMINATION: XR ELBOW 3 VIEWS RIGHT HISTORY: M25.521 - Pain in right elbow COMPARISON: There are no prior studies available for comparison. FINDINGS: Three views of the right elbow are submitted. Osseous mineralization is normal. There is no fracture or dislocation. The joint spaces are preserved. The soft tissues are unremarkable. There is no joint effusion. XR/XR elbow RT min 3V IMPRESSION: Unremarkable examination of the right elbow. Electronically signed by: Parish العراقي MD 11/10/2024 12:46 PM EDT
== END 2024-11-10 10:48 | disposition home or self-care (01) ==
LOC: HO.HMGCX 10:47
PROVIDERS: PCP Physician Assistant; Visit Provider Physician Assistant Medical
DX: M25.521 Pain in right elbow (principal)
CPT/HCPCS: 73080; 99212

== ENCOUNTER → 2024-11-10 12:02 | Outpatient (BNV) | payer OTHER, SELFPAY | PROVIDERS: PCP Physician Assistant; Visit Provider Radiology Diagnostic Radiology | DX: M25.521 Pain in right elbow (principal) | CPT/HCPCS: 73080 ==

== ENCOUNTER 2024-11-14 11:16 | Outpatient (AMB) | payer OTHER, SELFPAY ==
--- NOTE | 2024-11-14 11:31 | A.OFFPC_ITS ---
Vital Signs 11/14/24 11:32 Height 5 ft 1 in Weight 209 lb 3 oz BMI 39.5 BP 118/64 Position Sitting Pulse 79 Pulse Source Pulse Oximeter Pulse Oximetry (%) 98 Oxygen Delivery Method Room Air Intake Visit Reasons: right arm swelling and rash Collateral Clerk Required: Yes Collateral Clerk Language: Uzbek Accompanied by: Self / Same As Patient Allergies nickel (NICKEL) Allergy (Severe, Verified 11/14/24 11:52) RASH aspirin (ASPIRIN) Allergy (Unknown, Verified 11/14/24 11:52) RASH niacin (From Nicotinex) Adverse Reaction (Intermediate, Verified 11/14/24 11:52) Rash nicotine (From Nicoderm CQ) Adverse Reaction (Intermediate, Verified 11/14/24 11:52) Dizziness nickel Allergy (Unknown, Uncoded 06/01/24 10:13) hives/rash Seafood Allergy (Unknown, Uncoded 06/01/24 10:13) Unknown Vicodin Allergy (Unknown, Uncoded 06/01/24 10:13) hives/rash Tobacco use date assessed: 11/14/24 Dental Screening Dental Screen Date: 11/14/24 Did you have a dental visit in the last 12 months?: No Did you have a dental problem in the last 6 months where you did not have access to dental care?: No HPI right arm swelling and rash HPI Details The patient is a 54-year-old female presenting with pain and swelling in the arm, suspected to be due to Herpes Zoster (Shingles). The patient initially experienced swelling and pain in the arm after performing yard work, which involved lifting a heavy basket of dirt. The following day, she noticed increased swelling and pain, which was initially thought to be due to inflammation. Upon further examination, the pain was identified as being consistent with Herpes Zoster, characterized by vesicular rashes following a nerve path on one side of the body. The patient reported a history of chickenpox in childhood, which is a known precursor for shingles. The patient has been under significant stress due to personal issues, which may have contributed to the onset of shingles. She described the pain as sharp and burning, with difficulty sleeping due to discomfort. [facility] Medical History (Updated 11/14/24 @ 12:11 by Flaco Rosales PA-C) Lymphedema COVID-19 Cellulitis of skin Pruritic erythematous rash Surgical History Hx of cataract surgery (~2015) Status post ablation of incompetent vein using laser H/O tubal ligation S/P lumbar and lumbosacral fusion by anterior technique (~04/2012) Family History Mother Hx of thyroid cancer Father Dengue Social History Housing: Apartment Alcohol intake: never Patient Tobacco Use Status: Current everyday Tobacco user Tobacco use type: Cigarette Cigarette Packs Per Day: 0.25 Cigarettes Per Day: 2 e-Cigarette/Vaping Use: Never Used Second Hand Smoke Exposure: Yes service: No Current occupational status: disabled Current occupation: left handed Cognitive needs: No Hearing needs: No Vision needs: Yes (Glasses) Questionnaire PHQ-9 Over the last 2 weeks, how often have you been bothered by any of the following problems? 1. Little interest or pleasure in doing things: not at all 2. Feeling down, depressed, or hopeless: not at all 3. Trouble falling or staying asleep, or sleeping too much: nearly every day 4. Feeling tired or having little energy: more than half the days 5. Poor appetite or overeating: more than half the days 6. Feeling bad about yourself - or that you are a failure or have let yourself or your family down: more than half the days 7. Trouble concentrating on things, such as reading the newspaper or watching television: more than half the days 8. Moving or speaking so slowly that other people could have noticed. Or the opposite - being so fidgety or restless that you have been moving around a lot more than usual: not at all 9. Thoughts that you would be better off or of hurting yourself in some way : not at all Total score: 11 81816 - PHQ-9 Billing: Yes Source: Developed by Drs. Parish Paz, Deborah Friend, Zia Sharp and colleagues, with an educational sharon from [employer]. Thrive Questionnaire Date Thrive assessed: 11/14/24 What is your living situation today?: I have a steady place to live Within the past 12 months, did the food you bought not last and you didn't have the money to get more?: Sometimes True Within the past 12 months, did you worry whether your food would run out before you got money to buy more?: Often true Do you have trouble paying for medicines?: No Do you have trouble getting transportation to medical appointments?: No Do you have trouble paying your heating and electricity bill?: No Do you have trouble taking care of your child, family member or friend?: No Do you have trouble with day-to-day activities such as bathing, preparing meals, shopping, managing finances, etc.?: No Are you currently unemployed and looking for a job?: No Are you interested in more education?: No Please select the resources that you would like help with: None Currently or been in a relationship where the following occur: No concerns reported THRIVE Score: 2 AUDIT C Alcohol Use Questionnaire (AUDIT-C) 1. How often do you have a drink containing alcohol?: Never 3. How often do you have six or more drinks on one occasion?: Never Total Score: 0 CAROLINE-7 AMB Questionnaire CAROLINE-7 Date CAROLINE - 7 assessed: 11/14/24 Feeling nervous, anxious, or on edge: 2 = More than half the days Not being able to stop or control worryin = More than half the days Worrying too much about different things: 2 = More than half the days Trouble relaxin = Several days Being so restless that it is hard to sit still: 1 = Several days Becoming easily annoyed or irritable: 2 = More than half the days Feeling afraid as if something awful might happen: 0 = Not at all Total CAROLINE-7 score (0-4 normal; 5-9 mild; 10-14 moderate; 15-21 severe): 10 Source: Developed by Drs. Parish Paz, Deborah Friend, Zia Sharp and colleagues, with an educational sharon from [employer]. CAROLINE-7 Assessment Billing CAROLINE-7 Assessment Tool: CAROLINE-7 Assessment 88980 Review of Systems Const Denies headache(s) Eyes Denies loss of vision ENT Denies vertigo, Denies dizziness, Denies headache(s) and Denies sore throat Card Denies chest pain, Denies leg edema and Denies lightheadedness Resp Denies cough, Denies hemoptysis and Denies wheezing GI Denies abdominal pain, Denies melena, Denies constipation, Denies diarrhea and Denies vomiting Denies urinary frequency, Denies dysuria and Denies urinary urgency Musc Denies arthralgias, Denies joint swelling, Denies numbness and Denies tingling Neuro Denies Abnormal speech present, Denies behavioral changes, Denies vertigo, Denies dizziness, Denies headache(s), Denies loss of vision, Denies memory loss, Denies numbness and Denies tingling Psych Denies anxiety, Denies behavioral changes, Denies depression, Denies memory loss and Denies panic attacks Sam/Lymph Denies easy bleeding and Denies easy bruising Aller/Immun Denies wheezing Physical exam (Primary Care) Vital Signs: Last Vital Signs Pulse 79 11/14/24 11:32 BP 118/64 11/14/24 11:32 Pulse Ox 98 11/14/24 11:32 Oxygen Delivery Method Room Air 11/14/24 11:32 BMI result Body Mass Index 39.5 Tobacco/Smoking Status: Tobacco use Status Tobacco use date assessed 11/14/24 11/14/24 11:33 Patient Tobacco Use Status Current everyday Tobacco 11/14/24 11:33 Tobacco use type Cigarette 11/14/24 11:33 e-Cigarette/Vaping Use Never Used 11/14/24 11:33 PHQ-9: PHQ-9 Score PHQ-9: Total score 11 11/14/24 11:53 Thrive Assessment: Date of Thrive Assessment Date Thrive assessed 11/14/24 11/14/24 11:33 Currently or been in a relationship where the following occur: No concerns reported Const General: healthy appearing, no acute distress, alert and awake Nutritional Appearance: well nourished Orientation/consciousness: oriented to person, oriented to place and oriented to time HENMT Ears: TM's normal bilaterally General nose exam: Normal nasal mucous membranes and turbinates present Eyes Conjunctivae: conjunctivae normal Sclerae: sclerae normal Pupils: Equal, round and reactive pupils present Neck Neck: Yes no lymphadenopathy and Yes no JVD Thyroid: Thyroid normal Carotids: no bruits Resp Effort & Inspection: normal respiratory effort and not tachypneic Auscultation: no crackles, no rales, no rhonchi and no wheezes Cardio Rate: regular rate Rhythm: regular rhythm Heart sounds: no murmurs and normal S1 and S2 GI Palpation (GI): Soft to palpation, nontender, no hepatomegaly and no splenomegaly Auscultation: normal bowel sounds Skin General skin exam: no rashes or lesions noted and dry skin Neuro General: oriented to person, oriented to place and oriented to time Cranial nerves: Yes Equal, round and reactive pupils present Speech: No Abnormal speech present Gait exam (Neuro): Normal gait present Motor exam (neuro): no tremor noted Extrem Other: RIGHT ARM WITH PATCHES VESICULAR RASH Right upper extremity: full ROM Left upper extremity: full ROM Right lower extremity: full ROM; no edema Left lower extremity: full ROM; no edema Psych Mental Status: mental status grossly normal Speech and movement: Normal speech and movement present Affect: normal affect Attitude: cooperative Thought process: Normal thought process present Coding Level of Care Code Est Pt Level 3 (32241) Diagnoses Herpes zoster with complication B02.8 Herpes zoster complications: unspecified herpes zoster complication Additional Codes CAROLINE-7 Assessment Billing - CAROLINE-7 Assessment Tool: CAROLINE-7 Assessment 45502 ([id number]) PHQ-9 - 17234 - PHQ-9 Billing: Yes ([id number]) Assessment & Plan Assessment & Plan (1) Herpes zoster: Code(s): B02.9 - Zoster without complications Category: Medical Qualifiers: Herpes zoster complications: unspecified herpes zoster complication Qualified Code(s): B02.8 - Zoster with other complications Plan: The patient was diagnosed with Herpes Zoster, characterized by vesicular rashes and nerve pain in the arm. Treatment includes antiviral medication, Valtrex, to be taken for a week, and gabapentin for nerve pain management. The patient was advised to avoid contact with elderly individuals and infants to prevent transmission. Medications: New valacyclovir (Valtrex) 1,000 mg PO BID 14 tabs 0RF 7 days B02.9 - Zoster without complications gabapentin 100 mg PO BID 20 caps 0RF 10 days B02.9 - Zoster without complications
[2024-11-14 11:32] VITALS: BP 118/64; PULSE 79; O2SAT 98; BMI 39.5
== END 2024-11-14 12:10 | disposition home or self-care (01) ==
LOC: HO.HMCH 11:17
PROVIDERS: PCP Physician Assistant; Visit Provider Physician Assistant
DX: B02.8 Zoster with other complications (principal)

== ENCOUNTER → 2024-11-14 11:16 | Outpatient (BNVA) | payer OTHER, SELFPAY | PROVIDERS: PCP Physician Assistant; Visit Provider Physician Assistant | DX: B02.8 Zoster with other complications (principal) | CPT/HCPCS: 96127; 99212 ==

== ENCOUNTER 2024-11-15 07:43 | Outpatient (REF) | payer OTHER, SELFPAY ==
[2024-11-15 08:35] LABS: Hematocrit 39.5 % (37.0-47.0); Hemoglobin 12.7 g/dl (12.0-16.0); Mean Corpuscular HGB Conc 32.2 g/dl (31.0-35.0); Mean Corpuscular Hemoglobin 25.9 pg (27.0-33.0); Mean Corpuscular Volume 80.6 fL (80.0-98.0); NRBC Abs Auto 0.000 X10*3/uL (0.0-0.012); NRBC Pct Auto 0.0 /100WBC (0.0-0.2); Platelet Count 190 X10*3/uL (160-400); Red Blood Count 4.90 X10*6/uL (4.20-5.50); White Blood Count 5.1 X10*3/uL (4.8-10.8)
[2024-11-15 09:11] LABS: Alanine Aminotransferase 19 U/L (0-31); Albumin Level 4.7 g/dL (3.5-5.0); Alkaline Phosphatase 90 U/L (39-117); Anion Gap 11 (12-20); Aspartate Amino Transferase 18 U/L (5-31); Blood Urea Nitrogen 14 mg/dL (9-16); Calcium 9.4 mg/dL (8.4-10.2); Carbon Dioxide 25 mmol/L (22-29); Chloride 108 mmol/L (96-108); Cholesterol 212 mg/dL (<200); Estimated Glomerular Filt Rate > 60; HDL Cholesterol 51 mg/dL (>40); Potassium 4.1 mmol/L (3.3-5.1); Sodium 140 mmol/L (135-145); Total Protein 7.5 g/dL (6.5-8.0); Triglycerides 161 mg/dL (<150)
== END 2024-11-15 07:44 | disposition home or self-care (01) ==
LOC: HO.LAB 07:43
PROVIDERS: Visit Provider Physician Assistant
DX: E78.9 Disorder of lipoprotein metabolism, unspecified (principal); J45.30 Mild persistent asthma, uncomplicated
CPT/HCPCS: 36415; 80053; 80061; 85027

== ENCOUNTER 2024-12-01 10:08 | Outpatient (AMB) | payer OTHER, SELFPAY ==
--- NOTE | 2024-12-01 10:20 | A.OFFPC_ITS ---
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 Coach Required: No Accompanied by: Self / Same As Patient Allergies nickel (NICKEL) Allergy (Severe, Verified 12/01/24 10:34) RASH aspirin (ASPIRIN) Allergy (Unknown, Verified 12/01/24 10:34) RASH niacin (From Nicotinex) Adverse Reaction (Intermediate, Verified 12/01/24 10:34) Rash nicotine (From Nicoderm CQ) Adverse Reaction (Intermediate, Verified 12/01/24 10:34) Dizziness nickel Allergy (Unknown, Uncoded 12/01/24 10:34) hives/rash Seafood Allergy (Unknown, Uncoded 12/01/24 10:34) Unknown Vicodin Allergy (Unknown, Uncoded 12/01/24 10:34) hives/rash Medication List - Last Reconciled 12/01/24 by Flaco Rosales PA-C albuterol sulfate 1.25 mg (3 mL) inhalation QID 30 days albuterol sulfate 90 mcg/actuation 2 puffs inhalation Q4-6H PRN 30 days blood pressure monitor Testing once a day as needed cetirizine 10 mg PO DAILY PRN 90 days fluticasone propionate 50 mcg/actuation (Flonase Allergy Relief) 1 spray intranasal BID 30 days gabapentin 100 mg PO BID 10 days ibuprofen 800 mg PO Q8H PRN 30 days incontinence pad, liner, disp (Prevail Panty Liner pads) As directed 5-6 liners per day lidocaine 5% 1 patch topical DAILY 30 days [Lumbar support pillow As directed] meloxicam 15 mg PO DAILY mupirocin 2% 1 appl topical TID 10 days [Nebulizer inhalation machine As directed] omega 9-xbo-lya-fish oil 60-90-500 mg (Fish Oil) 1 cap PO DAILY prednisone 10 mg PO DIRECTED 7 days Shower Chair As directed tramadol 50 mg PO Q6H PRN 7 days valacyclovir (Valtrex) 1,000 mg PO BID 7 days Tobacco use date assessed: 12/01/24 Dental Screening Dental Screen Date: 12/01/24 Did you have a dental visit in the last 12 months?: Yes Did you have a dental problem in the last 6 months where you did not have access to dental care?: No Was dental information given to patient?: Patient has dentist HPI annual Exam HPI Details Patient is a 54-year-old female here today for an annual physical.? Patient has a past medical history significant for chronic lumbar spine pain, obesity, asthma, obesity, allergic rhinitis. Had a outbreak of herpes zoster as she is recovering from a for right upper extremity. .. Failed back syndrome:? She continues to have lower back pain she is able to manage. She does report having lateral thigh and pain she is requesting to get a lumbar support pillow to help reduce pain while lying down. Has been using her tramadol and [id number]-vot-avwutit NSAIDs without any significant relief. Patient did lumbar spine surgery with Dr. Robbins years ago.? Continues to have lumbar spine pain with radicular symptoms down left lower extremity.? She continues with the need of NSAIDs and p.r.n. tramadol for her pain.? She has not interested in any further pain reduction modalities at this time. . Asthma: She reports asthma has been fairly well controlled.? Does use her albuterol inhaler on a p.r.n. basis due to having episodes of wheezing.? Unfortunately continues to smoke and does not understand she does need to quit smoking.? She is tried nicotine replacement though had palpitations and dizziness. .. Class 2 obesity: Does understand her BMI is over 35 and will try to work on being more physically active and adapt to better eating habits to reduce her weight. ... Borderline high cholesterol: Unfortunately has not gotten fasting labs done for today's visit. Most recent fasting lipid panel showing borderline high cholesterol. .. History of hypertension: Blood pressure on the low side today in office. Has been able to manage with lifestyle and dietary modification. She is not on any anti hypertensive medication at this time. 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 Vaccines: Up-to-date with COVID vaccine, UTD pneumonia vaccine, up-to-date with flu vaccine, UTD tetanus vaccines, considering shingles vaccine [facility] Medical History Lymphedema COVID-19 Cellulitis of skin Pruritic erythematous rash Surgical History Hx of cataract surgery (~2015) Status post ablation of incompetent vein using laser H/O tubal ligation S/P lumbar and lumbosacral fusion by anterior technique (~04/2012) Family History Mother Hx of thyroid cancer Father Dengue Social History Housing: Apartment Alcohol intake: never Patient Tobacco Use Status: Current everyday Tobacco user Tobacco use type: Cigarette Cigarette Packs Per Day: 0.25 Cigarettes Per Day: 2 e-Cigarette/Vaping Use: Never Used Second Hand Smoke Exposure: Yes service: No Current occupational status: disabled Current occupation: left handed Cognitive needs: No Hearing needs: No Vision needs: Yes (Glasses) Questionnaire PHQ-9 Over the last 2 weeks, how often have you been bothered by any of the following problems? 1. Little interest or pleasure in doing things: not at all 2. Feeling down, depressed, or hopeless: not at all 3. Trouble falling or staying asleep, or sleeping too much: not at all 4. Feeling tired or having little energy: not at all 5. Poor appetite or overeating: not at all 6. Feeling bad about yourself - or that you are a failure or have let yourself or your family down: not at all 7. Trouble concentrating on things, such as reading the newspaper or watching television: not at all 8. Moving or speaking so slowly that other people could have noticed. Or the opposite - being so fidgety or restless that you have been moving around a lot more than usual: not at all 9. Thoughts that you would be better off or of hurting yourself in some way: not at all Total score: 0 Depression Screening Interpretation: Negative Depression Screening Done: Yes 86529 - PHQ-9 Billing: Yes Source: Developed by Drs. Parish Paz, Deborah Friend, Zia Sharp and colleagues, with an educational sharon from [employer]. Thrive Questionnaire Date Thrive assessed: 12/01/24 CAROLINE-7 AMB Questionnaire CAROLINE-7 Date CAROLINE - 7 assessed: 12/01/24 Source: Developed by Drs. Parish Paz, Deborah Friend, Zia Sharp and colleagues, with an educational sharon from [employer]. Review of Systems Const Denies body aches, Denies chills, Denies excessive sweating, Denies fatigue, Denies fever(s) and Denies headache(s) Eyes Denies blurry vision ENT Denies dysphagia, Denies vertigo, Denies dizziness, Denies headache(s), Denies hearing loss and Denies tinnitus Card Denies chest pain, Denies chest pain with activity, Denies syncope, Denies irregular heart rhythm and Denies dyspnea Resp Denies chest congestion, Denies cough, Denies hemoptysis, Denies dyspnea and Denies wheezing GI Denies abdominal pain, Denies melena, Denies hematochezia, Denies coffee ground emesis, Denies dysphagia, Denies diarrhea, Denies nausea and Denies vomiting Denies urinary frequency, Denies dysuria, Denies urinary hesitancy and Denies urinary urgency Musc Denies arthralgias, Denies limited range of motion, Denies muscle cramps and Denies muscle weakness Skin/Breast Denies rash and Denies skin ulcer Neuro Denies Abnormal speech present, Denies confusion, Denies vertigo, Denies dizziness, Denies syncope, Denies headache(s), Denies memory loss and Denies seizure-like activity Psych Denies anxiety, Denies confusion, Denies depression, Denies memory loss, Denies panic attacks and Denies paranoia Endo Denies excessive sweating, Denies fatigue, Denies flushing, Denies polydipsia and Denies polyuria Aller/Immun Denies wheezing Physical exam (Primary Care) Vital Signs: Last Vital Signs Temp 97.3 F 12/01/24 10:21 Pulse 78 12/01/24 10:21 BP 106/66 12/01/24 10:21 Pulse Ox 98 12/01/24 10:21 Oxygen Delivery Method Room Air 12/01/24 10:21 Tobacco/Smoking Status: Tobacco use Status Tobacco use date assessed 12/01/24 12/01/24 10:29 Patient Tobacco Use Status Current everyday Tobacco 12/01/24 10:29 Tobacco use type Cigarette 12/01/24 10:29 e-Cigarette/Vaping Use Never Used 12/01/24 10:29 Depression Screening Interpretation: Negative Thrive Assessment: Date of Thrive Assessment Date Thrive assessed 12/01/24 12/01/24 10:29 Const General: cooperative, comfortable, no acute distress, alert and awake; No confusion Orientation/consciousness: oriented to person, oriented to place, patient oriented x3 and No confusion HENMT Head: Yes normocephalic Ears: external ears normal and TM's normal bilaterally Face and sinus: No sinus tenderness Mouth: Normal oral and palatal mucosa present and tongue normal Teeth and gingiva: dentition normal and gingiva normal Throat: Yes posterior oropharynx normal, Yes tonsils normal and Yes uvula midline Eyes Conjunctivae: conjunctivae normal Sclerae: sclerae normal Pupils: Equal, round and reactive pupils present EOM: EOMs intact bilaterally Direct Ophthalmoscopy: No no photophobia Neck Neck: Yes no lymphadenopathy, No tender and Yes no JVD Thyroid: Thyroid normal Carotids: no bruits Chest Chest palpation & inspection: no tenderness Resp Effort & Inspection: normal respiratory effort, no audible wheezes, not labored and no stridor Auscultation: no crackles, no rales, no rhonchi and no wheezes Cardio Jugular venous distension: no JVD Rate: regular rate, not bradycardic and not tachycardic Rhythm: regular rhythm Bruits: no carotid bruits Peripheral pulses: Peripheral pulses 2+ throughout GI Inspection: Yes normal to inspection, No abdominal wall ecchymosis and No visible herniation Palpation (GI): Soft to palpation, nontender, no guarding, not rigid and No hepatosplenomegaly present Auscultation: normoactive bowel sounds General: Yes no CVA tenderness Back/Spine/Pelvis Back: no CVA tenderness and No back tenderness Cervical Spine: cervical ROM normal Thoracic/Lumbar Spine: thoracic and lumbar spine normal to inspection, straight leg raise negative bilaterally, No thoraco-lumbar ROM limited and No lumbar spinal tenderness Skin Lesions: no lesions Rashes: no rashes Wounds: no wounds Neuro General: oriented to person, oriented to place, patient oriented x3, CN's II-XI intact bilaterally and No confusion Cranial nerves: Yes Equal, round and reactive pupils present and Yes Normal accommodation reflex present Cognition (Neuro): normal cognition Speech: No Abnormal speech present Gait exam (Neuro): Normal gait present Motor exam (neuro): 5/5 motor strength present throughout Extrem Right upper extremity: full ROM; no cyanosis Left upper extremity: full ROM; no cyanosis Right lower extremity: no edema Left lower extremity: no edema Psych Appearance: grossly normal Mental Status: mental status grossly normal Affect: normal affect Attitude: cooperative Thought process: Normal thought process present Coding Level of Care Code Est Pt Prev Care 40-64y(95885) Diagnoses Annual physical exam Z00.00 Failed back syndrome M96.1 Class 2 obesity E66.812 Borderline high cholesterol E78.9 Colon cancer screening Z12.11 Cervical cancer screening Z12.4 Additional Codes PHQ-9 - 16871 - PHQ-9 Billing: Yes ([id number]) Assessment & Plan Assessment & Plan (1) Annual physical exam: Code(s): Z00.00 - Encounter for general adult medical examination without abnormal findings Category: Medical Plan: As per HPI (2) Failed back syndrome: Code(s): M96.1 - Postlaminectomy syndrome, not elsewhere classified Category: Medical Plan: As per HPI patient has a history of lumbar spine surgery. She has chronic pain to which she use his [id number] analgesics. Has been starting to use vitamins as well. Was previously using tramadol on a p.r.n. basis. She is requesting a lumbar support pillow to help her reduce her pain while lying down at night. (3) Class 2 obesity: Code(s): E66.812 - Obesity, class 2 Category: Medical Plan: Patient does understand her BMI is over 35 and will work on being more physically active and adapting to better eating habits to reduce her weight. (4) Borderline high cholesterol: Code(s): E78.9 - Disorder of lipoprotein metabolism, unspecified Category: Medical Plan: Patient has a history of borderline high cholesterol. Will work on lifestyle and dietary modifications to reduce her cholesterol. Goal total cholesterol to be below 200 (5) Colon cancer screening: Code(s): Z12.11 - Encounter for screening for malignant neoplasm of colon Category: Medical Plan: Patient willing to do Cologuard (6) Cervical cancer screening: Code(s): Z12.4 - Encounter for screening for malignant neoplasm of cervix Category: Medical Plan: Patient is in need of Pap screening Orders: Orders MM screening mammo BI Today Z12.31 - Encounter for screening mammogram for malignant neoplasm of breast Lipid Panel Today E78.9 - Disorder of lipoprotein metabolism, unspecified Comprehensive [place]. 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
[2024-12-01 10:21] VITALS: BP 106/66; PULSE 78; TEMP 36.3; O2SAT 98
== END 2024-12-01 10:53 | disposition home or self-care (01) ==
LOC: HO.HMCH 10:09
PROVIDERS: PCP Physician Assistant; Visit Provider Physician Assistant
DX: Z00.00 Encounter for general adult medical examination without abnormal findings (principal); M96.1 Postlaminectomy syndrome, not elsewhere classified; E66.812 Obesity, class 2; E78.9 Disorder of lipoprotein metabolism, unspecified; Z12.11 Encounter for screening for malignant neoplasm of colon

== ENCOUNTER → 2024-12-01 10:08 | Outpatient (BNVA) | payer OTHER, SELFPAY | PROVIDERS: PCP Physician Assistant; Visit Provider Physician Assistant | DX: Z00.00 Encounter for general adult medical examination without abnormal findings (principal); M96.1 Postlaminectomy syndrome, not elsewhere classified; E66.812 Obesity, class 2; E78.9 Disorder of lipoprotein metabolism, unspecified; B02.9 Zoster without complications; J45.909 Unspecified asthma, uncomplicated; Z13.31 Encounter for screening for depression | CPT/HCPCS: 96127; 99396 ==

== ENCOUNTER 2025-04-18 14:37 | Outpatient (REF) | payer OTHER, SELFPAY ==
--- NOTE | ~2025-04-18 | MM_ITS ---
EXAMINATION: MM SCREENING DIGITAL BREAST TOMOSYNTHESIS, BILATERAL CLINICAL INFORMATION: Screening. Asymptomatic. COMPARISON: Comparison made to multiple prior, most recent July 03, 2023, and most remote July 11, 2014. TECHNIQUE: Digital breast tomosynthesis is performed in mediolateral oblique and craniocaudal views along with computer-aided detection (CAD). Synthesized 2D images are generated from the tomosynthesis. FINDINGS: BREAST COMPOSITION: There are scattered areas of fibroglandular density. BILATERAL BREASTS: No significant masses, suspicious calcifications or other abnormalities are seen in either breast. MM/MM tomosynthesis screening BI IMPRESSION: BILATERAL BREASTS: Negative, no mammographic evidence of malignancy. Normal interval follow-up is recommended in 12 months. ASSESSMENT: BI-RADS: Category 1: Negative RECOMMENDATION: Routine annual mammography screening. FOLLOW-UP: 1 year F/U This examination should not preclude the clinical evaluation of a suspicious palpable abnormality. This patient's information was entered into a reminder system with a target due date for their next mammogram. Electronically signed by: Dunia Santana MD 04/18/2025 06:28 PM [facility] [place]
== END 2025-04-18 14:38 | disposition home or self-care (01) ==
LOC: HO.MAMMO 14:37
PROVIDERS: PCP Physician Assistant; Visit Provider Physician Assistant
DX: Z12.31 Encounter for screening mammogram for malignant neoplasm of breast (principal)
CPT/HCPCS: 77063; 77067

== ENCOUNTER → 2025-04-18 14:45 | Outpatient (BNV) | payer OTHER, SELFPAY | PROVIDERS: PCP Physician Assistant; Visit Provider Radiology Body Imaging | DX: Z12.31 Encounter for screening mammogram for malignant neoplasm of breast (principal) | CPT/HCPCS: 77063; 77067 ==